=== PATIENT | female | born 2000 | race Caucasian/White ===

== ENCOUNTER 2021-12-17 14:47 | Emergency (ER) | payer OTHER ==
[2021-12-17] MEDS ORDERED: LIDOCAINE/EPINEPHR/TETRACAINE 5 ML BOTTLE TOPICAL ONE (15:30)
[2021-12-17] MEDS ORDERED: GELATIN SPONGE,ABSORB (SMALL) 1 EACH SPONGE TOPICAL STA (15:33)
[2021-12-17] MEDS ORDERED: MORPHINE SULFATE 2 MG/ML SYRINGE IM STA (15:35)
--- NOTE | 2021-12-17 15:52 | ED ---
Wound/Laceration HPI - General Chief Complaint: Wound/Laceration Stated Complaint: IHS-L hand finger lac Time Seen by Provider: 12/17/21 15:21 Source: patient, RN notes reviewed Mode of arrival: ambulatory Limitations: no limitations - History of Present Illness Initial Comments: Patient is a 21-year-old -Portuguese female presents the emergency room with complaints of laceration to her left thumb. She was cutting food for work when she accidentally sliced her thumb. The knife she was using was clean and a sharp non-serrated blade; she was cutting raw yan. She reports that her vaccinations including Tdap up-to-date. She has no significant past medical history and does not take any medications on a regular basis. - Related Data Previous Rx's Medication Instructions Recorded Sulfamethox-Tmp 800-160Mg [Bactrim 1 tab PO Q12HR 3 Days #6 tab 12/17/21 DS 800-160 mg] Allergies Allergy/AdvReac Type Severity Reaction Status Date / Time No Known Allergies Allergy Verified 12/17/21 14:53 Review of Systems ROS Statement: Those systems with pertinent positive or pertinent negative responses have been documented in the HPI. ROS Other: All systems not noted in ROS Statement are negative. Past Medical History Past Medical History: No Reported History History of Any Multi-Drug Resistant Organisms: None Reported Past Surgical History: No Surgical Hx Reported Past Psychological History: No Psychological Hx Reported Smoking Status: Vaper Past Alcohol Use History: None Reported Past Drug Use History: None Reported General Exam Limitations: no limitations General appearance: alert, other (in pain) Head exam: Present: atraumatic, normocephalic, normal inspection Eye exam: Present: normal appearance, PERRL, EOMI. Absent: scleral icterus, conjunctival injection, periorbital swelling ENT exam: Present: normal exam, mucous membranes moist Neck exam: Present: normal inspection Respiratory exam: Absent: respiratory distress, accessory muscle use Left Hand Wrist exam: Present: full ROM, laceration, other (clean lacertaion of dermal tip left thumb). Absent: swelling, nail avulsion Vascular: Absent: vascular compromise Neurological exam: Present: alert, oriented X3, CN II-XII intact Psychiatric exam: Present: anxious Skin exam: Present: other (laceration as above) Course Vital Signs 12/17/21 14:48 Temperature 98 F Pulse Rate 100 Respiratory 20 Rate Blood Pressure 151/82 O2 Sat by Pulse 99 Oximetry Medical Decision Making - Medical Decision Making Laceration with skin removal to left thumb tip and partial end of nail without blunt force trauma nail bed or phalange involvement. No indication for diagnostic imaging or laboratory studies. Will attempt to stop bleeding with LET if unsuccessful will use Gelfoam. Significant pain complaints from patient will give morphine IM and monitor response. Pain improved with morphine. Unable to slow bleeding with LET solution Gelfoam applied with successful stoppage of bleeding. Pressure dressing applied. Due to cutting raw meat will treat with a short course of Bactrim. Will refer to hand specialist for further evaluation and treatment of left thumb tip. Advised no work for the next 48 hours. Case discussed with Dr. Segal Disposition Clinical Impression: Laceration Disposition: HOME SELF-CARE Condition: Stable Instructions (If sedation given, give patient instructions): Laceration (ED) Additional Instructions: Please keep wound clean and dry. Avoid excessive bandage changes to prevent further bleeding. Please complete short course of antibiotics as a preventative for infection. Utilize ibuprofen or Tylenol [id number] as needed for pain. Please follow-up with your primary care provider and orthopedist regarding possible further intervention of your laceration to your left thumb. Please return to the Emergency Department if symptoms worsen or any other concerns. Prescriptions: Sulfamethox-Tmp 800-160Mg [Bactrim DS 800-160 mg] 1 tab PO Q12HR 3 Days #6 tab Is patient prescribed a controlled substance at d/c from ED?: No Referrals: Akosua Mane MD [Primary Care Provider] - 1-2 days Jessa Saleh DPM [REFERRING] - 1-2 days (Hand specialist) Time of Disposition: 16:49
[2021-12-17 17:15] VITALS: BP 139/96; PULSE 91; RESP 18; TEMP 98.8
== END 2021-12-17 17:15 | disposition home or self-care (01) ==
LOC: EC 14:47
DX: S61.012A Laceration without foreign body of left thumb without damage to nail, initial encounter (principal); F17.290 Nicotine dependence, other tobacco product, uncomplicated; W26.0XXA Contact with knife, initial encounter; Y93.G1 Activity, food preparation and clean up; Y92.000 Kitchen of unspecified non-institutional (private) residence as the place of occurrence of the external cause
CPT/HCPCS: 99282; J2270; 96372

== ENCOUNTER 2021-12-20 17:56 | Emergency (ER) | payer OTHER ==
[2021-12-20 18:11] VITALS: BP 115/78; PULSE 85; RESP 20; TEMP 98.6
--- NOTE | 2021-12-20 19:20 | ED ---
Recheck HPI - General Chief Complaint: Recheck/Abnormal Lab/Rx Stated Complaint: lt hand - thumb injury Time Seen by Provider: 12/20/21 19:05 Source: patient, RN notes reviewed Mode of arrival: ambulatory Limitations: no limitations - History of Present Illness Initial Comments: Condition presents to the emergency department complaining of inability to remove the bandage from her left thumb. Patient cut her thumb on Monday was seen here for skin avulsion. Gelfoam was applied. Bandage was applied. According to the patient and her mother the bandages stuck and they could not get it off. They present for evaluation. Is been no symptomology related to infectious process. Patient denying any significant pain. No fever, no chills, no shortness of breath or chest pain. No nausea or vomiting. No abdominal pain. No other skin irritation. No rashes or lesions. No erythema. MD Complaint: wound re-check - Related Data Previous Rx's Medication Instructions Recorded Sulfamethox-Tmp 800-160Mg [Bactrim 1 tab PO Q12HR 3 Days #6 tab 12/17/21 DS 800-160 mg] Allergies Allergy/AdvReac Type Severity Reaction Status Date / Time No Known Allergies Allergy Verified 12/20/21 18:10 Review of Systems ROS Statement: Those systems with pertinent positive or pertinent negative responses have been documented in the HPI. ROS Other: All systems not noted in ROS Statement are negative. Past Medical History Past Medical History: No Reported History History of Any Multi-Drug Resistant Organisms: None Reported Past Surgical History: No Surgical Hx Reported Past Psychological History: No Psychological Hx Reported Smoking Status: Vaper Past Alcohol Use History: None Reported Past Drug Use History: None Reported General Exam Limitations: no limitations General appearance: alert, in no apparent distress Head exam: Present: atraumatic, normocephalic, normal inspection Eye exam: Present: normal appearance, EOMI Neck exam: Present: normal inspection Respiratory exam: Present: normal lung sounds bilaterally. Absent: respiratory distress, wheezes, rales, rhonchi, stridor Cardiovascular Exam: Present: regular rate, normal rhythm, normal heart sounds. Absent: systolic murmur, diastolic murmur, rubs, gallop, clicks Extremities exam: Present: full ROM, normal capillary refill, other (Patient has a bandage to the distal aspect of her left thumb which is intact. There is no evidence of infectious process. No erythema. Full range of motion. No joint involvement.). Absent: tenderness Course Vital Signs 12/20/21 18:08 Temperature 98.6 F Pulse Rate 85 Respiratory 20 Rate Blood Pressure 115/78 O2 Sat by Pulse 99 Oximetry Procedures - Procedures Initial comment: Dressing was removed without difficulty. Wound was cleansed thoroughly. Band- Aid applied. Patient educated on wound care. Gelfoam was left in place. Medical Decision Making - Medical Decision Making Patient counseled on wound care. Counseled on signs and symptoms of infection. Counseled return or follow parameters. All questions answered. Patient was told to return to the ER for any signs or symptoms worsen. Told to return immediately if any other problems arise. All questions answered. Treatment plan discussed. Patient in agreement Every effort has been made to ensure accuracy of this dictation. However, due to the limitations of electronic medical records and dictation devices, errors in charting still occur. Publication Designer Dr. Negron Disposition Clinical Impression: Encounter for wound re-check Disposition: HOME SELF-CARE Condition: Good Instructions (If sedation given, give patient instructions): Acute Wound Care (ED) Additional Instructions: Wash the wound daily with warm soap and water. Apply a Band-Aid. Wash daily. Leave the Gelfoam on until it falls off on its own. Follow-up with your regular physician as directed. Return to the ER immediately if any symptoms worsen, new symptoms arise, or any other problems develop. Is patient prescribed a controlled substance at d/c from ED?: No Referrals: Akosua Mane MD [Primary Care Provider] - 1-2 days Time of Disposition: 19:35
== END 2021-12-20 19:46 | disposition home or self-care (01) ==
LOC: EC 17:56
DX: S61.002D Unspecified open wound of left thumb without damage to nail, subsequent encounter (principal); F17.209 Nicotine dependence, unspecified, with unspecified nicotine-induced disorders; W26.8XXD Contact with other sharp object(s), not elsewhere classified, subsequent encounter
CPT/HCPCS: 99281

== ENCOUNTER 2022-04-11 00:32 | Emergency (ER) | payer BC ==
[2022-04-11 00:36] VITALS: BP 162/107; PULSE 92; RESP 18; TEMP 98.7
[2022-04-11] MEDS ORDERED: ACETAMINOPHEN TAB 325 MG TAB PO STA (02:34)
[2022-04-11] MEDS ORDERED: IBUPROFEN 800 MG TAB PO STA (02:34)
--- NOTE | 2022-04-11 02:35 | ED ---
Abdominal Pain HPI - General Chief Complaint: Abdominal Pain Stated Complaint: Cramping, Abdominal Pain Source: family, RN notes reviewed, old records reviewed Mode of arrival: ambulatory Limitations: no limitations - History of Present Illness Initial Comments: This is a 21-year-old female to the emergency department for evaluation presents today for evaluation regards to crampy abdominal pain suprapubic abdominal pain positive nausea no vomiting denies chance of no vaginal bleeding symptoms began during intercourse tonight are mildly improving MD Complaint: abdominal pain -: hour(s) Location: diffuse, suprapubic Radiation: suprapubic Migration to: no migration, suprapubic Severity: moderate Severity scale (1-10): 7 Quality: sharp Consistency: intermittent Improves With: nothing Worsens With: nothing Associated Symptoms: nausea Treatments Prior to Arrival: other (0) - Related Data Previous Rx's Medication Instructions Recorded Sulfamethox-Tmp 800-160Mg [Bactrim 1 tab PO Q12HR 3 Days #6 tab 12/17/21 DS 800-160 mg] Allergies Allergy/AdvReac Type Severity Reaction Status Date / Time No Known Allergies Allergy Verified 04/11/22 00:35 Review of Systems ROS Statement: Those systems with pertinent positive or pertinent negative responses have been documented in the HPI. ROS Other: All systems not noted in ROS Statement are negative. Past Medical History Past Medical History: No Reported History History of Any Multi-Drug Resistant Organisms: None Reported Past Surgical History: No Surgical Hx Reported Past Psychological History: No Psychological Hx Reported Smoking Status: Vaper Past Alcohol Use History: None Reported Past Drug Use History: None Reported General Exam Limitations: no limitations General appearance: alert, in no apparent distress Head exam: Present: atraumatic, normocephalic, normal inspection Eye exam: Present: normal appearance, PERRL, EOMI. Absent: scleral icterus, conjunctival injection, periorbital swelling ENT exam: Present: normal exam, mucous membranes moist Neck exam: Present: normal inspection. Absent: tenderness, meningismus, lymphadenopathy Respiratory exam: Present: normal lung sounds bilaterally. Absent: respiratory distress, wheezes, rales, rhonchi, stridor Cardiovascular Exam: Present: regular rate, normal rhythm, normal heart sounds. Absent: systolic murmur, diastolic murmur, rubs, gallop, clicks GI/Abdominal exam: Present: soft, normal bowel sounds. Absent: distended, tenderness, guarding, rebound, rigid Extremities exam: Present: normal inspection, full ROM, normal capillary refill. Absent: tenderness, pedal edema, joint swelling, calf tenderness Back exam: Present: normal inspection Neurological exam: Present: alert, oriented X3, CN II-XII intact Psychiatric exam: Present: normal affect, normal mood Skin exam: Present: warm, dry, intact, normal color. Absent: rash Course Vital Signs 04/11/22 00:34 Temperature 98.7 F Pulse Rate 92 Respiratory 18 Rate Blood Pressure 162/107 O2 Sat by Pulse 100 Oximetry - Reevaluation(s) Reevaluation #1: 04/11/22 Medical record is reviewed Patient symptoms are improved here in the ER Patient informed results and questions are answered Medical Decision Making - Medical Decision Making 21 female to the emergency department for evaluations, mild dyspareunia with pelvic pain. No acute cause found no real tenderness on exam. Patient can be discharged home normal UA - Lab Data Lab Results 04/11/22 04/11/22 Range/Units 02:43 02:43 Urine Color Yellow Urine Appearance Clear (Clear) Urine pH 6.0 (5.0-8.0) Ur Specific [place] 1.019 (1.001-1.035) Urine Protein 2+ H (Negative) Urine Glucose (UA) Negative (Negative) Urine Ketones Negative (Negative) Urine Blood Small H (Negative) Urine Nitrite Negative (Negative) Urine Bilirubin Negative (Negative) Urine Urobilinogen <2.0 (<2.0) mg/dL Ur Leukocyte Esterase Negative (Negative) Urine RBC <1 (0-5) /hpf Urine WBC 1 (0-5) /hpf Ur Squamous Epith Cells 2 (0-4) /hpf Urine Mucus Occasional H (None) /hpf Urine HCG, Qual Not Detected (Not Detectd) Disposition Clinical Impression: Abdominal pain, Pelvic pain Disposition: HOME SELF-CARE Instructions (If sedation given, give patient instructions): Pelvic Pain in Women (ED) Is patient prescribed a controlled substance at d/c from ED?: No Referrals: Akosua Mane MD [Primary Care Provider] - 1-2 days Time of Disposition: 03:15
[2022-04-11 02:58] LABS: Appearance,Urine Clear (Clear); Bilirubin,Urine Negative (Negative); Blood,Urine Small (Negative); Color,Urine Yellow; Glucose,Urine (UA) Negative (Negative); Ketones,Urine Negative (Negative); Leukocyte Esterase,Urine Negative (Negative); Mucus,Urine Occasional /hpf; Nitrite,Urine Negative (Negative); Protein,Urine 2+ (Negative); RBC,Urine <1 /hpf (0-5); Specific Gravity,Urine 1.019 (1.001-1.035); Squamous Epithelial Cell,Urine 2 /hpf (0-4); Urobilinogen,Urine <2.0 mg/dL (<2.0); WBC,Urine 1 /hpf (0-5)
== END 2022-04-11 03:27 | disposition home or self-care (01) ==
LOC: EC 00:32
DX: R10.2 Pelvic and perineal pain (principal); F17.290 Nicotine dependence, other tobacco product, uncomplicated
CPT/HCPCS: 81001; 81025; 99284

== ENCOUNTER 2022-09-02 11:14 | Day surgery (SDC) | payer BC ==
[~2022-09-02 11:14] MED LIST: DEXAMETHASONE SOD PHOSPHATE 4 MG/ML 1 ML VIAL IV ONE; LACTATED RINGERS 1,000 ML IV SCH; MIDAZOLAM 2 MG/2 ML VIAL IV PRN; ONDANSETRON 4 MG/2 ML VIAL IVP ONE; SCOPOLAMINE 1 MG/72 HR PATCH TRANSDERM ONE
[2022-09-02] MEDS ORDERED: LIDOCAINE 1% (10MG/ML) FOR IV START INTRADERMA ONE (11:55)
[2022-09-02] MEDS ORDERED: MIDAZOLAM 2 MG/2 ML VIAL IVP ONE (12:23)
[2022-09-02] MEDS ORDERED: fentaNYL (PF) 50 MCG/1 ML VIAL IVP ONE ×2 (12:24)
[2022-09-02] MEDS ORDERED: SUCCINYLCHOLINE CHLORIDE 200 MG/10 ML VIAL IV ONE (13:56)
[2022-09-02] MEDS ORDERED: SODIUM CHLORIDE 0.9% (PF) 10 ML VIAL ONE (13:56)
[2022-09-02] MEDS ORDERED: HYDROmorphone (PF) 1 MG/ML ONE (13:56)
[2022-09-02] MEDS ORDERED: MIDAZOLAM 2 MG/2 ML VIAL ONE (13:56)
[2022-09-02] MEDS ORDERED: LIDOCAINE 2% INJ 20 MG/ML (2 ML VIAL) ONE (13:56)
[2022-09-02] MEDS ORDERED: fentaNYL (PF) 50 MCG/ML 2 ML AMP ONE (13:56)
[2022-09-02] MEDS ORDERED: ROPIVACAINE 5 MG/ML 30 ML VIAL ONE (13:56)
[2022-09-02] MEDS ORDERED: PROPOFOL 10 MG/ML 20 ML VIAL IV ONE (13:56)
--- NOTE | 2022-09-02 14:25 | XR ---
EXAMINATION TYPE: XR ankle limited RT, FL guidance operating room DATE OF EXAM: 09/02/2022 CLINICAL HISTORY: Right ankle fracture. TECHNIQUE: Fluoroscopy. Intraoperative limited views right ankle. COMPARISON: None. FINDINGS: Fluoroscopic guidance was provided during open reduction and internal fixation procedure p erformed by Dr. Agrawal. A total of 64 seconds of fluoroscopic time was utilized during the procedu re and 5 spot images was acquired. Total dose area product (DAP) in uGy*m?, mGy*cm? (or similar: 0.8 057. Intraoperative images acquired show placement of lateral fixating plate in the lateral malleolus. Ali gnment appears satisfactory on intraoperative images provided. IMPRESSION: As Above.
--- NOTE | 2022-09-02 14:30 | P.OP ---
Date of Procedure: 09/02/22 Preoperative Diagnosis: 1. Right [place] ankle injury (proximal fibula fracture and distal syndesmotic disruption) Postoperative Diagnosis: Same Procedure(s) Performed: 1. Open reduction internal fixation right ankle syndesmosis 2. Nonoperative management of right proximal fibula fracture 3. Application of joint with the position, right ankle 4. Manual application of joint stress radiography by physician, right ankle Anesthesia: KENDRA, regional Surgeon: Damaso Agrawal Milk Tanker Driver #1: Christiano Pan Estimated Blood Loss (ml): 50 IV fluids (ml): 1,000 Pathology: none sent Condition: stable Disposition: PACU Indications for Procedure: The patient is very pleasant previously healthy 21-year-old female who sustained an isolated injury to her right ankle. She was initially seen at an outside ER where x-rays were taken. She presented to my office earlier this week. Her x- rays showed a proximal fibula fracture with widening of the medial clear space and incisura. We discussed her unstable ankle injury and that it would require surgery. I long discussion with the patient and her mom on the treatment and potential risks. We discussed the potential risks and complications of ankle fracture surgery at length. Risks discussed included but are not limited to risks from anesthesia, superficial infection, deep infection, nonunion, malunion, malreduction of the ankle mortise or syndesmosis, damage to local blood vessels or nerves particularly branches of the superficial peroneal nerve, saphenous nerve, and or sural nerve, hardware failure, loss of reduction of the ankle mortise or syndesmosis due to hardware failure, symptomatic hardware, delayed wound healing, wound necrosis, posttraumatic ankle arthritis, stiffness, instability, intra-articular pathology requiring further treatment, need for further surgery, an inability to regain preinjury level of function, dissatisfaction with surgical outcome, DVT, PE, pressure sore, splint complications, and possibly loss of life or limb. The patient understands that while these are the most common complications there are other less common complications possible. They provided their verbal and written consent to go forward with ankle open reduction and internal fixation. All of their questions regarding the procedure and potential complications were answered. Description of Procedure: The patient identified and prepped holding and the correct right ankle was marked with my initials. I reviewed the consent form with the patient and all of her questions were answered. A block was given by anesthesia. The patient was then brought back to the operating room. She is just not [id number] general anesthetic, preoperative antibiotics, and TXA were given. A tourniquet was applied the proximal aspect of the right leg. The left leg was secured to the table with foam and tape. A bump was placed under the right buttock internally rotate the leg. A ramp was placed facilitate imaging. Nonsterile drapes were applied. A presurgical scrub was performed a chlorhexidine scrub brush. The right leg was then prepped and draped in the standard sterile fashion. Prior to starting surgery timeout was performed identifying the correct patient, operative extremity, and procedure. The patient's leg was then elevated, exsanguinated with an Esmarch bandage, and the tourniquet was inflated to 250 mmHg. I began by making an over the distal fibula long enough to place a 4 hole one third tubular plate. Dissection was carried down to the fibula. There was obvious disruption of the distal syndesmosis as I was easily able to pass a Phoenix elevator between the distal tibia and fibula syndesmosis. A 4 hole one third tubular plate was placed at the level of the syndesmosis and nonlocking 3.5 mm screws were placed in the first and fourth hole of the plate. Using both visualization, manual palpation, and fluoroscopy the fibula was gently reduced into the incisura. The reduction was held with a large [id number] reduction clamp. I then placed a tight rope device from lateral to medial across the syndesmosis. The Endobutton was placed directly against the tibia medially and the tight rope device was tightened nicely reducing the syndesmosis. Fluoroscopy was then used to verify reduction of the syndesmosis and medial clear space. A syndesmotic screw was then placed in the second hole of the plate to hold the repair. Clinically the syndesmosis was reduced as I was able to visualize the reduction and was unable to pass a Phoenix elevator through the syndesmosis. Final fluoroscopic images were taken including a mortise and lateral view as well as a manual external rotation stress x-ray. There was no widening of the medial clear space or incisura. I interpreted this as a stable ankle syndesmosis. Both wounds were then thoroughly irrigated and closed in layers. Sterile dressing was applied followed by a well-padded bulky Negron splint. The patient was awoken from her anesthetic, transferred from the OR table to the [facility], and brought to recovery having tolerated the procedure well. Christiano Pan PA-C was required the skilled commercial lines account assistant for patient positioning, exposure, reduction, placement of hardware, closure of wound, and application of splint. Plan: The patient is going to discharge home as an outpatient. She is to make strict nonweightbearing on her right ankle. I long discussion with the patient's parents on risks for DVT. As the patient is adopted they're not aware of any family history of DVT. She is not on control and has no other risk factors so she'll be treated with aspirin 81 mg twice a day. She was given pain medications and a stool softener. The patient will follow-up in the office in 10-14 days for splint removal nonweightbearing 3 views of the right ankle and likely suture removal.
[2022-09-02 14:33] VITALS: RESP 16; TEMP 97.4
[2022-09-02] MEDS: HYDROmorphone 0.5 MG/0.5 ML SYRINGE IVP PRN ×2 (14:40→14:50)
--- NOTE | 2022-09-02 15:28 | P.ANPRN ---
Procedure Note - Anesthesia - Nerve Block Performed Right Adductor Canal Time Out Performed: Yes (:) Date of Procedure: 09/02/22 Procedure Start Time: Procedure Stop Time: Location of Patient: PreOp Indication: Acute Post-Operative Pain, Requested by Surgeon (Dr Agrawal) Sedation Type: Sedate with meaningful contact maintained Preparation: Sterile Prep Position: Supine Catheter: None Needle Types: Pajunk Needle Gauge: 21 Ultrasound used to visualize needle placement: Yes Ultrasound used to observe medication spread: Yes Injectate: 0.5% Ropivacaine (see comment for volume) (20cc) Blood Aspirated: No Pain Paresthesia on Injection Noted: No Resistance on Injection: Normal Image Stored and Saved: Yes Events: Uneventful and Well Tolerated
--- NOTE | 2022-09-02 15:29 | P.ANPRN ---
Procedure Note - Anesthesia - Nerve Block Performed Right Popliteal Time Out Performed: Yes Date of Procedure: 09/02/22 Procedure Start Time: 12: Procedure Stop Time: 12:34 Location of Patient: PreOp Indication: Acute Post-Operative Pain, Requested by Surgeon (Dr Agrawal) Sedation Type: Sedate with meaningful contact maintained Preparation: Sterile Prep Position: Left Lateral Catheter: None Needle Types: Pajunk Needle Gauge: 21 Ultrasound used to visualize needle placement: Yes Ultrasound used to observe medication spread: Yes Injectate: 0.5% Ropivacaine (see comment for volume) (15cc +5cc PF Normal saline) Blood Aspirated: No Pain Paresthesia on Injection Noted: No Resistance on Injection: Normal Image Stored and Saved: Yes Events: Uneventful and Well Tolerated
[2022-09-02 16:32] VITALS: BP 153/97; PULSE 60
== END 2022-09-02 16:50 | disposition home or self-care (01) ==
LOC: OR 11:14
PROVIDERS: ATTEND Orthopaedic Surgery
DX: S82.831A Other fracture of upper and lower end of right fibula, initial encounter for closed fracture (principal); S82.861A Displaced Maisonneuve's fracture of right leg, initial encounter for closed fracture; W01.0XXA Fall on same level from slipping, tripping and stumbling without subsequent striking against object, initial encounter; G89.18 Other acute postprocedural pain; F12.90 Cannabis use, unspecified, uncomplicated; Z87.891 Personal history of nicotine dependence; Z79.899 Other long term (current) drug therapy
CPT/HCPCS: 27829; 64447; 64445; 81025; 73600; J2250; J0330; J1100; J0690; J2405; J3010 ×2; J1170 ×2; J2795; J2704; J2001

== ENCOUNTER → 2023-11-02 | Outpatient (CLI) | payer BC, OTHER ==
--- NOTE | 2023-11-03 09:10 | US ---
EXAMINATION TYPE: US OB anatomy transabd DATE OF EXAM: 11/02/2023 COMPARISON: NONE CLINICAL INDICATION: Female, 23 years old with history of Z34.90 SUPRVSN OF NORMAL ,; G1. TECHNIQUE: Transabdominal (TA) EXAM MEASUREMENTS: GESTATIONAL AGE / DATING Physician Established: ( weeks/ day) EDC: 03/27/2024 Dates by LMP: Unknown per patient Dates by First Scan: This is first scan at this facility. Dates by Current Scan for: () EDC: 03/27/2024 SURVEY IUP: Single PLACENTA: Fundal PREVIA: No previa seen DARION: 13.6 cm Normal CERVICAL LENGTH (transabdominal: norm > 3.0cm): 3.3 cm BIOMETRY PRESENTATION: Variable BPD: 4.20 cm 18 weeks / 6 days HC: 15.8 cm 18 weeks / 5 days AC: 13.99 cm 19 weeks / 3 days FL: 3.01 cm 19 weeks / 3 days ESTIMATED WEIGHT IN GRAMS: 282 grams ESTIMATED WEIGHT IN LBS/OZ: 0 lbs. 10 oz. WEIGHT PERCENTAGE BASED ON ESTABLISHED DATE: 52 % HC/AC: 1.13 Normal FL/AC: 22% HEART RATE: 142 bpm RHYTHM: Normal ANATOMY SEEN (within normal limits): * Lateral Vent (< 1 cm) 0.61 cm * Cisterna Magna (< 1.1 cm) 0.56 cm * Nuchal Fold (< 0.6 cm) 0.34 cm * Cerebellum (varies with age) 1.89 cm Choroid Plexus (bilateral) Midline Falx Four Chamber Heart Outflow tracts: LVOT Stomach Situs Diaphragm Kidneys (bilateral) Bladder Cord Insert Three Vessel Cord Longitudinal Spine Transverse Spine Arms (bilateral) Legs (bilateral) ANATOMY NOT SEEN: RVOT Nose / Lips Cavus Septi Pellucidi Patient given call center number to make OB call back appt for structures not seen. IMPRESSION: Single live intrauterine gestational ultrasound age 19 weeks 1 day, patient to return for anatomy not seen. Consider follow-up dedicated imaging Center.
== END | disposition home or self-care (01) ==
LOC: RADUSWWP 15:47
PROVIDERS: ATTEND Obstetrics & Gynecology
DX: Z34.90 Encounter for supervision of normal pregnancy, unspecified, unspecified trimester (principal)
CPT/HCPCS: 76811

== ENCOUNTER 2023-11-11 12:35 | Outpatient (CLI) | payer BC, OTHER ==
[2023-11-11 13:26] VITALS: BP 140/66; PULSE 87; RESP 16; TEMP 97.3
--- NOTE | 2023-12-10 10:36 | P.MSEPDOC ---
Presenting Problems - Arrival Data Date of Arrival on Unit: 11/11/23 Time of Arrival on Unit: 12:35 Mode of Transport: Ambulatory - Complaint OB-Reason for Admission/Chief Complaint: Elevated Blood Pressure Comment: LEWIS pt presents to triage very anxious after an appointment with Dr. Sales who told her her blood pressure was "high" and had "protein in her urine." Pt wants to get checked out to make sure everything is ok. Medical History - Information : 1 Para: 0 Term: 0 : 0 Abortions: Spontaneous or Elective: 0 Number of Living Children: 0 - Gestational Age Gestational Age by SEAMUS (wks/days): 20 Weeks and 3 Days Review of Systems - Review of Systems Constitutional: No problems Breast: No problems ENT: No problems Cardiovascular: No problems Respiratory: No problems Gastrointestinal: No problems Genitourinary: No problems Musculoskeletal: No problems Neurological: No problems Skin: No problems Vital Signs - Temperature Temperature: 97.3 F Temperature Source: Temporal Artery Scan - Pulse Pulse Oximetery Pulse Rate: 87 Pulse Assessment Method: Pulse Oximetry - Respirations Respiratory Rate: 16 Oxygen Delivery Method: Room Air O2 Sat by Pulse Oximetry: 97 - Blood Pressure Right Arm Blood Pressure: 140/66 Blood Pressure Mean: 90 Blood Pressure Source: Automatic Cuff Physician Notification - Physician Notified Physician Notified Date: 11/11/23 Physician Notified Time: 13:08 Physician: Ashvin Brothers Order Received: Yes - Notification Comment Comment: RN spoke with Dr. Brothers regarding LEWIS pt who presents to get a BP check after being seen by Dr. Sales/clinic on and was told she had high blood pressure and protein in her urine and has been anxious ever since. Reported vitals WNL, including all three BPs and FHT dopplered. Orders received to discharge pt home. Maternal Triage Index - Maternal Triage Index Presenting for scheduled procedure w/no complaint: No - Stat/Priority 1 Stat Priority 1: No - Urgent/Priority 2 Urgent Priority 2: No - Prompt/Priority 3 Prompt Priority 3: No - Non-Urgent/Priority 4 Non-Urgent Priority 4: Yes Criteria Met for Priority 4: Non-urgent symptoms - BP check/anxiety Disposition - Disposition OB Disposition: Discharge to home, Written follow up instructions reviewed Discharge Date: 11/11/23 Discharge Time: 13:15 I agree with the RN Medical Screening Exam: Yes Physician's MSE Comment: I have neither seen nor examined the patient. Case reviewed; plan agreed upon as documented in EMR&OBIX.: Yes Diagnosis: RELATED CONDITIONS, UNSPECIFIED, SECOND TRIMESTER
== END 2023-11-11 13:15 | disposition home or self-care (01) ==
LOC: FBPOP 12:35
PROVIDERS: ATTEND Obstetrics & Gynecology
DX: O26.892 Other specified pregnancy related conditions, second trimester (principal); R03.0 Elevated blood-pressure reading, without diagnosis of hypertension; Z3A.20 20 weeks gestation of pregnancy
CPT/HCPCS: 99213

== ENCOUNTER → 2023-11-13 | Outpatient (CLI) | payer BC, OTHER ==
--- NOTE | 2023-11-14 07:25 | US ---
EXAMINATION TYPE: US OB Call Back DATE OF EXAM: 11/13/2023 COMPARISON: 11/02/2023 CLINICAL INDICATION: Female, 23 years old with history of Z34.90 SUPERVSN OF NORMAL ; Missed anatomy GESTATIONAL AGE / DATING Dates by Initial Survey Scan: (20 weeks/5 days) EDC: 03/27/2024 HEART RATE: 142 bpm RHYTHM: Normal ANATOMY SEEN (second anatomic survey look): Cavus Septi Pellucidi: WNL Outflow tracts:? RVOT; WNL Nose / Lips: WNL ANATOMY STILL NOT SEEN (requiring an additional callback appt): All anatomy not visualized on initial exam was seen today and appears to be within normal limits at this time IMPRESSION: 1. Completion of survey. No anomalies noted. 2. Single intrauterine gestation estimated at 20 weeks 5 days gestation based on previous ultrasound. Cardiac activity measures 2.
== END | disposition home or self-care (01) ==
LOC: RADUSWWP 14:11
PROVIDERS: ATTEND Obstetrics & Gynecology
DX: Z34.92 Encounter for supervision of normal pregnancy, unspecified, second trimester (principal); Z36.89 Encounter for other specified antenatal screening; Z3A.20 20 weeks gestation of pregnancy

== ENCOUNTER → 2023-11-22 | Outpatient (CLI) | payer BC, OTHER ==
--- NOTE | 2023-11-22 12:48 | US ---
EXAMINATION TYPE: US OB anatomy transabd DATE OF EXAM: 11/22/2023 COMPARISON: US x 2 CLINICAL INDICATION: Female, 23 years old with history of Z34.90 ENCNTR FOR SUPRVSN OF NORMAL PREGNAN CY, UNS; Pt states Dr. rodriguez nose/lips not well evaluated on prior exam TECHNIQUE: Transabdominal (TA) EXAM MEASUREMENTS: GESTATIONAL AGE / DATING Physician Established: (22 weeks/0 days) EDC: 03/27/2024 Dates by LMP: Unknown Dates by First Scan: (22 weeks/0 days) EDC: 03/27/2024 Dates by Current Scan for: (21 weeks/2 days) EDC: 04/01/2024 SURVEY IUP: Single PLACENTA: Posterior PREVIA: No previa DARION: 14.0 cm Normal CERVICAL LENGTH (transabdominal: norm > 3.0cm): 3.4 cm BIOMETRY PRESENTATION: Breech BPD: 5.2 cm 21 weeks / 5 days HC: 19.4 cm 21 weeks / 4 days AC: 16.8 cm 21 weeks / 6 days FL: 3.6 cm 21 weeks / 2 days ESTIMATED WEIGHT IN GRAMS: 436 grams ESTIMATED WEIGHT IN LBS/OZ: 0 lbs. 15 oz. WEIGHT PERCENTAGE BASED ON ESTABLISHED DATE: 24.8 % HC/AC: 1.15 Normal FL/AC: 21 Normal HEART RATE: 137 bpm RHYTHM: Normal ANATOMY SEEN (within normal limits): * Lateral Vent (< 1 cm) 0.6 cm * Cisterna Magna (< 1.1 cm) 0.6 cm * Cerebellum (varies with age) 2.3 cm Choroid Plexus (bilateral) Midline Falx Cavus Septi Pellucidi Four Chamber Heart Outflow tracts: RVOT Stomach Situs Nose / Lips Diaphragm Kidneys (bilateral) Bladder Cord Insert Three Vessel Cord Longitudinal Spine Transverse Spine Arms (bilateral) Legs (bilateral) ANATOMY NOT SEEN: * Nuchal Fold (< 0.6 cm)- visualized on recent prior anatomy scan LVOT- visualized on recent prior anatomy scan Single, viable IUP- anatomy visualized on today's exam appeared wnl IMPRESSION: As above
== END | disposition home or self-care (01) ==
LOC: RADUSWWP 09:43
PROVIDERS: ATTEND Obstetrics & Gynecology
DX: Z34.92 Encounter for supervision of normal pregnancy, unspecified, second trimester (principal); Z3A.21 21 weeks gestation of pregnancy
CPT/HCPCS: 76811

== ENCOUNTER 2023-11-27 12:01 | Outpatient (CLI) | payer BC, OTHER ==
--- NOTE | 2023-11-27 13:26 | US ---
EXAMINATION TYPE: US OB >= 14 wk fetus DATE OF EXAM: 11/27/2023 COMPARISON: 11/22/23 CLINICAL INDICATION: Female, 23 years old with history of vaginal bleeding and pain; vag bleeding TECHNIQUE: Transabdominal (TA) GESTATIONAL AGE / DATING Physician Established: (22 weeks/5 days) EDC: 03/27/24 Dates by LMP: (22 weeks/5 days) EDC: 03/27/24 Dates by First Scan: (22 weeks/5 days) EDC: 03/27/24 Dates by Current Scan: (22 weeks/5 days) EDC: 03/27/24 Beta HCG (if available): Not available at this time SURVEY IUP: Single PLACENTA: Posterior PREVIA: No Previa DARION: 15 cm Normal CERVICAL LENGTH (transabdominal: norm > 3.0cm): 3.9 cm BIOMETRY PRESENTATION: Vertex LIE: Longitudinal BPD: 5.5 cm 22 weeks / 5 days HC: 20.5 cm 22 weeks / 5 days AC: 17.8 cm 22 weeks / 5 days FL: 3.9 cm 22 weeks / 5 days ESTIMATED WEIGHT IN GRAMS: 524 grams ESTIMATED WEIGHT IN LBS/OZ: 1 lbs. 2 oz. WEIGHT PERCENTAGE BASED ON ESTABLISHED DATES: 40% HC/AC: 1.15 Normal FL/AC: 22 Normal HEART RATE: 150 bpm RHYTHM: Normal exam limited by body habitus, age, shadowing from head IMPRESSION: Single viable intrauterine is examined in limitation as noted.
[2023-11-27 13:30] LABS: Appearance,Urine Cloudy (Clear); Bacteria,Urine Rare /hpf; Bilirubin,Urine Negative (Negative); Blood,Urine Moderate (Negative); Color,Urine Light Yellow; Glucose,Urine (UA) Negative (Negative); Ketones,Urine Negative (Negative); Leukocyte Esterase,Urine Large (Negative); Mucus,Urine Rare /hpf; Nitrite,Urine Negative (Negative); PH, Urine 7.5 (5.0-8.0); Protein,Urine 2+ (Negative); RBC,Urine 1 /hpf (0-5); Specific Gravity,Urine 1.016 (1.001-1.035); Squamous Epithelial Cell,Urine 14 /hpf (0-4); Urobilinogen,Urine <2.0 mg/dL (<2.0); WBC,Urine 16 /hpf (0-5)
[2023-11-27] MEDS: TERBUTALINE 1 MG/ML VIAL SQ STA (14:20)
[2023-11-27] MEDS: LACTATED RINGERS 1,000 ML IV ONE (14:20)
[2023-11-27] MEDS: ACETAMINOPHEN IV (For NPO) 1,000 MG in EMPTY BAG 1 BAG IVPB STA (14:59)
[2023-11-27] MEDS: NIFEdipine 10 MG CAP PO STA (15:56)
[2023-11-27] MEDS: KETOROLAC 15 MG/ML 1 ML VIAL IVP STA (17:16)
[2023-11-27 17:25] LABS: Appearance,Urine Clear (Clear); Bilirubin,Urine Negative (Negative); Blood,Urine Trace (Negative); Color,Urine Colorless; Glucose,Urine (UA) Negative (Negative); Ketones,Urine Trace (Negative); Leukocyte Esterase,Urine Negative (Negative); Mucus,Urine Rare /hpf; Nitrite,Urine Negative (Negative); PH, Urine 6.5 (5.0-8.0); Protein,Urine Negative (Negative); Specific Gravity,Urine 1.004 (1.001-1.035); Urobilinogen,Urine <2.0 mg/dL (<2.0); WBC,Urine <1 /hpf (0-5)
[2023-11-27 20:44] VITALS: BP 128/60; PULSE 92; RESP 17
--- NOTE | 2024-01-30 20:36 | P.MSEPDOC ---
Presenting Problems - Arrival Data Date of Arrival on Unit: 11/27/23 Time of Arrival on Unit: 12:01 Mode of Transport: Wheelchair - Complaint OB-Reason for Admission/Chief Complaint: Vaginal Bleeding, Pain Comment: Pt presented to triage with abd pain and vaginal bleeding, pt crying and curled up in position, Medical History - Information : 1 Para: 0 Term: 0 : 0 Abortions: Spontaneous or Elective: 0 Number of Living Children: 0 - Gestational Age Gestational Age by SEAMUS (wks/days): 22 Weeks and 5 Days Review of Systems - Review of Systems Constitutional: No problems Breast: No problems ENT: No problems Cardiovascular: No problems Respiratory: No problems Gastrointestinal: No problems Genitourinary: No problems Musculoskeletal: No problems Neurological: No problems Skin: No problems Vital Signs - Pulse Right Brachial Pulse Rate: 92 Pulse Assessment Method: Automatic Cuff - Respirations Respiratory Rate: 17 Oxygen Delivery Method: Room Air - Blood Pressure Right Arm Blood Pressure: 128/60 Blood Pressure Mean: 82 Blood Pressure Source: Automatic Cuff Medical Screen Scoring - Cervical Exam Dilation (cm): 0 Effacement (%): 50 - Uterine Contractions Intensity: Mild Resting: Soft to palpation - Assessment - Baby A Baseline FHR: 145 Heart Rate - NICHD Category: Category I (Normal) Physician Notification - Physician Notified Physician Notified Date: 11/27/23 Physician Notified Time: 12:15 Physician: Stella Sen New Order Received: Yes - Notification Comment Comment: ultrasound done, ua x 2, one clean catch, one straight catheter, cultur es started, ivf x1 liter, ofirmev and tordol given iv, terb sq x1 procarida 10 mg po given, type and screen drawn, finally pain down after tordol was given, pt dc'd home and given instructions to be on pelvic rest and follow up with Dr. Sales tomorrow. Maternal Triage Index - Maternal Triage Index Presenting for scheduled procedure w/no complaint: No - Stat/Priority 1 Stat Priority 1: No - Urgent/Priority 2 Urgent Priority 2: Yes Provider Notified: Stella Sen Provider Notified Time: 12:15 Criteria Met for Priority 2: Pt presented to triage with abd pain and vaginal bleeding, pt crying and curled up in position, Disposition - Disposition OB Disposition: Triage, Discharge to home, Written follow up instructions reviewed Discharge Date: 11/27/23 Discharge Time: 18:46 I agree with the RN Medical Screening Exam: Yes Physician's MSE Comment: I have neither seen nor examined the patient Case reviewed; plan agreed upon as documented in EMR&OBIX.: Yes Diagnosis: SPOTTING COMPLICATING , SECOND TRIMESTER
== END 2023-11-27 18:46 | disposition home or self-care (01) ==
LOC: FBPOP 12:01
PROVIDERS: ATTEND Obstetrics & Gynecology
DX: O26.852 Spotting complicating pregnancy, second trimester (principal); O46.92 Antepartum hemorrhage, unspecified, second trimester; O00.01 Abdominal pregnancy with intrauterine pregnancy; Z3A.22 22 weeks gestation of pregnancy
CPT/HCPCS: 36415; 76805; 81001; 86850; 86900; 86901; 87086; 96361; 96365; 96375; 99215

== ENCOUNTER 2024-01-27 22:45 | Outpatient (CLI) | payer BC, OTHER ==
[2024-01-28 00:17] LABS: Appearance,Urine Cloudy (Clear); Bacteria,Urine Occasional /hpf; Bilirubin,Urine Negative (Negative); Blood,Urine Negative (Negative); Budding Yeast,Urine Rare /hpf; Calcium Oxalate Crystals,Urine Moderate /hpf; Color,Urine Light Yellow; Glucose,Urine (UA) Negative (Negative); Ketones,Urine Negative (Negative); Leukocyte Esterase,Urine Large (Negative); Mucus,Urine Few /hpf; Nitrite,Urine Negative (Negative); PH, Urine 6.5 (5.0-8.0); Protein,Urine 2+ (Negative); RBC,Urine 8 /hpf (0-5); Specific Gravity,Urine 1.022 (1.001-1.035); Squamous Epithelial Cell,Urine 9 /hpf (0-4); Urobilinogen,Urine <2.0 mg/dL (<2.0); WBC,Urine 175 /hpf (0-5)
[2024-01-28 01:35] VITALS: BP 135/65; PULSE 94; RESP 18; TEMP 98.3
--- NOTE | 2024-03-03 02:10 | P.MSEPDOC ---
Presenting Problems - Arrival Data Date of Arrival on Unit: 01/27/24 Time of Arrival on Unit: 22:45 Mode of Transport: Wheelchair - Complaint OB-Reason for Admission/Chief Complaint: Decreased Movement, Pain Comment: Pt presents to triage with c/o decreased movement for past hour, states she has not felt baby kick at all in an hour. Pt states she also developed a sharp intermittent left lower back pain that radiates to lower abdominal pain that she rates 6/10 that started around the same time. Medical History - Information : 1 Para: 0 Term: 0 : 0 Abortions: Spontaneous or Elective: 0 Number of Living Children: 0 - Gestational Age Gestational Age by SEAMUS (wks/days): 31 Weeks and 4 Days Review of Systems - Review of Systems Constitutional: No problems Breast: No problems ENT: No problems Cardiovascular: No problems Respiratory: No problems Gastrointestinal: No problems Genitourinary: No problems Musculoskeletal: No problems Neurological: No problems Skin: No problems Vital Signs - Temperature Temperature: 98.3 F Temperature Source: Oral - Pulse Pulse Oximetery Pulse Rate: 94 Pulse Assessment Method: Pulse Oximetry - Respirations Respiratory Rate: 18 Oxygen Delivery Method: Room Air O2 Sat by Pulse Oximetry: 98 - Blood Pressure Right Arm Blood Pressure: 135/65 Blood Pressure Mean: 88 Blood Pressure Source: Automatic Cuff Medical Screen Scoring - Assessment - Baby A Baseline FHR: 135 Heart Rate - NICHD Category: Category I (Normal) NST: Reactive Physician Notification - Physician Notified Physician Notified Date: 01/27/24 Physician Notified Time: 23:20 Physician: Flakita New Order Received: Yes - Notification Comment Comment: Dr. Boggs called, report given. Pt DOM of Dr. Sales, 31 weeks and 3 days. Presents to triage with c/o decreased movement for an hour and sharp left back pain that radiates to her lower abdomen. NST reactive, cat 1 tones. No cx on monitor or palpated, abd soft non tender. Urine collected and concentrated. Orders to send UA and if negative d/c pt home, otherwise RN to call MD back with results. Lab results reported on, order recieved for 1g IVPB rocephen then d/c home and pt to follow up with Dr. Sales Maternal Triage Index - Maternal Triage Index Presenting for scheduled procedure w/no complaint: No - Stat/Priority 1 Stat Priority 1: No - Urgent/Priority 2 Urgent Priority 2: Yes Provider Notified: Flakita Provider Notified Time: 23:20 Criteria Met for Priority 2: Pt presents to triage with c/o decreased movement for past hour, states she has not felt baby kick at all in an hour. Pt states she also developed a sharp intermittent left back pain that radiates to lower abdominal pain that she rates 6/10 that started around the same time Disposition - Disposition OB Disposition: Discharge to home Discharge Date: 01/28/24 Discharge Time: 01:15 I agree with the RN Medical Screening Exam: Yes Physician's MSE Comment: I have neither seen nor examined the patient. Case reviewed; plan agreed upon as documented in EMR&OBIX.: Yes Diagnosis: RELATED CONDITIONS, UNSPECIFIED, THIRD TRIMESTER
== END 2024-01-28 01:15 | disposition home or self-care (01) ==
LOC: FBPOP 22:45
PROVIDERS: ATTEND Obstetrics & Gynecology
CPT/HCPCS: 59025; 81001; 87086; 96365; 99214

== ENCOUNTER 2024-03-03 16:14 | Outpatient (CLI) | payer BC, OTHER ==
[2024-03-03 17:02] VITALS: BP 127/68; PULSE 98; RESP 18; TEMP 98.4
--- NOTE | 2024-03-24 06:25 | P.MSEPDOC ---
Presenting Problems - Arrival Data Date of Arrival on Unit: 03/03/24 Time of Arrival on Unit: 16:14 Mode of Transport: EMS - Complaint OB-Reason for Admission/Chief Complaint: Possible Onset of Labor Comment: 36.4 weeks contractions since 1520 Medical History - Information : 1 Para: 0 Term: 0 : 0 Abortions: Spontaneous or Elective: 0 Number of Living Children: 0 - Gestational Age Gestational Age by SEAMUS (wks/days): 36 Weeks and 4 Days Review of Systems - Review of Systems Constitutional: No problems Breast: No problems ENT: No problems Cardiovascular: No problems Respiratory: No problems Gastrointestinal: No problems Genitourinary: No problems Musculoskeletal: No problems Neurological: No problems Skin: No problems Vital Signs - Temperature Temperature: 98.4 F Temperature Source: Temporal Artery Scan - Pulse Right Brachial Pulse Rate: 98 Pulse Assessment Method: Automatic Cuff - Respirations Respiratory Rate: 18 Oxygen Delivery Method: Room Air O2 Sat by Pulse Oximetry: 100 - Blood Pressure Right Arm Supine Blood Pressure: 127/68 Blood Pressure Mean: 87 Blood Pressure Source: Automatic Cuff Medical Screen Scoring - Cervical Exam Dilation (cm): 0 Membranes: Intact - Uterine Contractions Frequency From (mins): 10 Frequency To (mins): 10 Duration From (seconds): 70 Duration To (seconds): 90 Intensity: Moderate Resting: Soft to palpation - Assessment - Baby A Baseline FHR: 125 Heart Rate - NICHD Category: Category I (Normal) NST: Reactive Physician Notification - Physician Notified Physician Notified Date: 03/03/24 Physician Notified Time: 17:20 Physician: Ashvin Brothers Order Received: Yes Maternal Triage Index - Maternal Triage Index Presenting for scheduled procedure w/no complaint: No - Stat/Priority 1 Stat Priority 1: No - Urgent/Priority 2 Urgent Priority 2: No - Prompt/Priority 3 Prompt Priority 3: Yes Criteria Met for Priority 3: 36.4 contractions Disposition - Disposition OB Disposition: Triage, Discharge to home, Written follow up instructions reviewed Discharge Date: 03/03/24 Discharge Time: 17:30 I agree with the RN Medical Screening Exam: Yes Physician's MSE Comment: I have neither seen nor examined the patient. Case reviewed; plan agreed upon as documented in EMR&OBIX.: Yes Diagnosis: RELATED CONDITIONS, UNSPECIFIED, THIRD TRIMESTER
== END 2024-03-03 17:30 | disposition home or self-care (01) ==
LOC: FBPOP 16:14
PROVIDERS: ATTEND Obstetrics & Gynecology
DX: O47.03 False labor before 37 completed weeks of gestation, third trimester (principal); Z3A.36 36 weeks gestation of pregnancy
CPT/HCPCS: 59025; G0463; 99213

== ENCOUNTER 2024-03-08 09:13 | Outpatient (CLI) | payer BC, OTHER ==
[2024-03-08 12:16] VITALS: BP 130/67; PULSE 88; RESP 16; TEMP 97.4
--- NOTE | 2024-03-10 12:12 | P.MSEPDOC ---
Presenting Problems - Arrival Data Date of Arrival on Unit: 03/08/24 Time of Arrival on Unit: 09:15 Mode of Transport: EMS - Complaint OB-Reason for Admission/Chief Complaint: Possible Onset of Labor Comment: 37 0/7 weeks gestation. c/o severe contx at work. 1-2 minutes apart. Medical History - Information : 1 Para: 0 Term: 0 : 0 Abortions: Spontaneous or Elective: 0 Number of Living Children: 0 - Gestational Age Gestational Age by SEAMUS (wks/days): 37 Weeks and 0 Days Review of Systems - Review of Systems Constitutional: No problems Breast: No problems ENT: No problems Cardiovascular: No problems Respiratory: No problems Gastrointestinal: No problems Genitourinary: No problems Musculoskeletal: No problems Neurological: No problems Skin: No problems Vital Signs - Temperature Temperature: 97.4 F Temperature Source: Temporal Artery Scan - Pulse Apical Pulse Rate: 88 Pulse Assessment Method: Automatic Cuff - Respirations Respiratory Rate: 16 Oxygen Delivery Method: Room Air O2 Sat by Pulse Oximetry: 98 - Blood Pressure Right Arm Blood Pressure: 130/67 Blood Pressure Mean: 88 Blood Pressure Source: Automatic Cuff Medical Screen Scoring - Cervical Exam Dilation (cm): 0 Effacement (%): 0 Membranes: Intact - Uterine Contractions Intensity: Mild Resting: Soft to palpation - Assessment - Baby A Baseline FHR: 130 Heart Rate - NICHD Category: Category I (Normal) NST: Reactive Physician Notification - Physician Notified Physician Notified Date: 03/08/24 Physician Notified Time: 10:00 Physician: Мария Enriquez New Order Received: Yes (may return home if no crevical change and reactive nst) Maternal Triage Index - Maternal Triage Index Presenting for scheduled procedure w/no complaint: No - Stat/Priority 1 Stat Priority 1: No - Urgent/Priority 2 Urgent Priority 2: No - Prompt/Priority 3 Prompt Priority 3: No - Non-Urgent/Priority 4 Non-Urgent Priority 4: Yes Criteria Met for Priority 4: closed. irreg contx. reactive nst Disposition - Disposition OB Disposition: Discharge to home, Written follow up instructions reviewed Discharge Date: 03/08/24 Discharge Time: 10:45 I agree with the RN Medical Screening Exam: Yes Case reviewed; plan agreed upon as documented in EMR&OBIX.: Yes Diagnosis: FALSE LABOR BEFORE 37 COMPLETED WEEKS OF GEST, THIRD TRI
== END 2024-03-08 10:45 | disposition home or self-care (01) ==
LOC: FBPOP 09:13
PROVIDERS: ATTEND Obstetrics & Gynecology Obstetrics
DX: O47.1 False labor at or after 37 completed weeks of gestation (principal); Z3A.37 37 weeks gestation of pregnancy
CPT/HCPCS: 59025; 99213

== ENCOUNTER 2024-05-06 13:13 | Observation (INO) | payer BC, OTHER ==
--- NOTE | 2024-05-06 13:40 | ED ---
Recheck HPI - General Source: patient, RN notes reviewed Mode of arrival: ambulatory Limitations: no limitations <Lesley Foss - Last Filed: 05/06/24 13:35> <Yola Lundy - Last Filed: 05/07/24 18:25> - General Chief Complaint: Recheck/Abnormal Lab/Rx Stated Complaint: Hypertension Time Seen by Provider: 05/06/24 13:30 - History of Present Illness Initial Comments: Quick Note: This is a 23-year-old female who presents to the emergency department for elevated blood pressure. Patient delivered her first baby on 03/27. States that the was not complicated. She went for a checkup with her OB, Dr. Sales today. Her blood pressure was found to be elevated and she was advised to come here for further evaluation. Denies any history of preeclampsia or other complications. Does not believe that she previously had elevated blood pressure. Denies any headaches but does report visual changes. States that this may be due to her needing new glasses. (Lesley Foss) Patient is a 23-year-old female presenting today for elevated blood pressure. Patient was at her OBs visit when they measured a systolic blood pressure of 112. Patient endorses intermittent blurry vision and abdominal pain times last 2 days. Patient delivered first baby 03/27. No history of preeclampsia or complications. Patient takes escitalopram and Adderall, began taking Adderall about 1 week ago. The patient currently denies headaches, vision changes, numbness, weakness, slurred speech, chest pain, shortness of breath, lower extremity swelling. States she was having intermittent left lower quadrant pain denies any right upper quadrant pain, Denies new or heavy vaginal bleeding, dysuria, hematuria, diarrhea, N/V. (Yola Lundy) - Related Data Home Medications Medication Instructions Recorded Confirmed Sertraline [Zoloft] 50 mg PO DAILY 05/07/24 05/07/24 Previous Rx's Medication Instructions Recorded amLODIPine [Norvasc] 5 mg PO DAILY #30 tab 05/07/24 Allergies Allergy/AdvReac Type Severity Reaction Status Date / Time No Known Allergies Allergy Verified 05/07/24 08:25 Review of Systems ROS Other: All systems not noted in ROS Statement are negative. <Lesley Foss - Last Filed: 05/06/24 13:35> ROS Other: All systems not noted in ROS Statement are negative. <Yola Lundy - Last Filed: 05/07/24 18:25> ROS Statement: Those systems with pertinent positive or pertinent negative responses have been documented in the HPI. Past Medical History Past Medical History: No Reported History Additional Past Medical History / Comment(s): R ankle fracture History of Any Multi-Drug Resistant Organisms: None Reported Past Surgical History: No Surgical Hx Reported Past Anesthesia/Blood Transfusion Reactions: Unable to Obtain Additional Past Anesthesia/Blood Transfusion Reaction / Comment(s): Pt has never had anesthesia or a blood transfusion. Past Psychological History: No Psychological Hx Reported, ADD/ADHD Smoking Status: Vaper Past Alcohol Use History: Occasional Past Drug Use History: Marijuana - Past Family History Mother Additional Family Medical History / Comment(s): Pt is adopted. <Lesley Foss - Last Filed: 05/06/24 13:35> General Exam Limitations: no limitations <Lesley Foss - Last Filed: 05/06/24 13:35> <Yola Lundy - Last Filed: 05/07/24 18:25> - General Exam Comments Initial Comments: Visual Physical Exam Vital signs reviewed General: Well-appearing, nontoxic, no acute distress. Head: Normocephalic, atraumatic Eyes: PERRLA, EOMI ENT: Airway patent Chest: Nonlabored breathing Skin: No visual rash, normal skin tone Neuro: Alert and oriented 3 Musculoskeletal: No gross abnormalities (Lesley Foss) PE: CONSTITUTIONAL: No apparent distress, well appearing SKIN: Warm, dry, no jaundice, hives or petechiae EYES: Pupils are equally round, extraocular movements intact without nystagmus, clear conjunctiva, non-icteric sclera HENT: Normocephalic, atraumatic, moist mucus membranes, oropharynx clear without exudates NECK: , Full range of motion, normal appearance PULMONARY: Clear to auscultation without wheezes, rhonchi, or rales, normal excursion, no accessory muscle use and no stridor CARDIOVASCULAR: Regular rate, rhythm, normal S1 and S2. No appreciated murmurs, rubs or gallops. Strong radial pulses with intact distal perfusion. No lower extremity edema GASTROINTESTINAL: Soft, active bowel sounds throughout, non-tender, non- distended, no palpable masses, no rebound or guarding. No hepatosplenomegaly GENITOURINARY: MUSCULOSKELETAL: Extremities have no gross deformity, no edema, redness, or swelling. No calf swelling NEUROLOGIC:_a/o x 3, GCS 15, normal mentation and speech. Moves all extremities x 4 without motor or sensory deficit, cranial nerves: II (visual yu without defects), III, IV and (extraocular movements are intact, pupils are equal with normal reaction to light), V (intact facial sensation and jaw opening), VII (no facial droop), IX and X (normal palate movement, midline uvula, normal voice), XI (symmetrical shoulder shrug and lateral head rotation against resistance), XII (midline tongue protrusion). Motor strength is 5/5 in all extremities. No abnormal movements. Normal muscle tone. Sensation to light touch is intact bilaterally. No cerebellar signs ([id number], [id number] testing normal, ) PSYCHIATRIC:_normal mood and affect, thought process is clear and linear (Yola Lundy) Course Vital Signs 05/06/24 05/06/24 05/06/24 13:28 18:25 18:29 Temperature 98.2 F Pulse Rate 61 57 L Respiratory 16 20 Rate Blood Pressure 171/105 189/116 173/106 O2 Sat by Pulse 99 100 Oximetry 05/06/24 05/06/24 05/06/24 18:47 21:00 22:00 Temperature Pulse Rate 60 70 55 L Respiratory 22 18 18 Rate Blood Pressure 158/102 151/91 154/87 O2 Sat by Pulse 100 100 100 Oximetry 05/06/24 05/07/24 05/07/24 23:00 00:00 06:00 Temperature Pulse Rate 59 L 67 70 Respiratory 18 18 16 Rate Blood Pressure 152/82 156/99 147/101 O2 Sat by Pulse 100 100 99 Oximetry 05/07/24 05/07/24 05/07/24 09:00 12:06 18:05 Temperature 98.1 F 97.6 F Pulse Rate 61 58 L 54 L Respiratory 15 17 15 Rate Blood Pressure 150/100 147/91 154/96 O2 Sat by Pulse 99 98 100 Oximetry Medical Decision Making <Lesley Foss - Last Filed: 05/06/24 13:35> - Lab Data Result diagrams: 05/06/24 16:02 05/06/24 14:19 <Yola Lundy - Last Filed: 05/07/24 18:25> - Medical Decision Making I performed the QuickNote portion of this chart. Signed Lesley Foss PA-C. (Lesley Foss) Was pt. sent in by a medical professional or institution (SONIA Fernandez, HELP DESK OPERATOR, urgent care, hospital, or [facility]...) When possible be specific @Patient was sent in by her OB, Dr. Sales Did you speak to anyone other than the patient for history (EMS, parent, family, police, friend...)? What history was obtained from this source @ -No Did you review nursing and triage notes (agree or disagree)? Why? @ -I reviewed nursing and triage notes Were old charts reviewed (outside hosp., previous admission, EMS record, old EKG, old radiological studies, urgent care reports/EKG's, [facility] records)? Report findings @Medical records reviewed,Of note patient was seen by OB here on 11/11/2023 after she was told to come in by Dr. Sales due to a "high blood pressure reading" and protein in her urine, blood pressure at that time was 140/66 Differential Diagnosis (chest pain, altered mental status, abdominal pain women, abdominal pain men, vaginal bleeding, weakness, fever, dyspnea, syncope, headache, dizziness, GI bleed, back pain, seizure, CVA, palpatations, mental health, musculoskeletal)? @Differential diagnose remains broad over top considerations include hy pertensive urgency, hypertensive emergency/preeclampsia, uncontrolled hypertension, medication side effect this is not an all-inclusive list EKG interpreted by me (3pts min.). Sinus bradycardia, rate 56 bpm, MT interval 162 ms QRS duration 83 ms QT/QTc 384/376 ms, normal axis, no ST elevations or depressions X-rays interpreted by me (1pt min.). @ -None done CT interpreted by me (1pt min.). @No signs of hemorrhage or mass effect on CT brain U/S interpreted by me (1pt. min.). @ -None done What testing was considered but not performed or refused? (CT, X-rays, U/S, labs)? Why? @ -None What meds were considered but not given or refused? Why? @ -None Did you discuss the management of the patient with other professionals (professionals i.e. Dr., PA, HELP DESK OPERATOR, lab, RT, psych nurse, social and political studies professor, travel consultant, teacher, bsa officer, sample case porter)? Give summary Case was discussed with Dr. Vianca Boyd, states that patient is too far out from delivery to be preeclamptic at this point, rec's evaluating for other causes of HTN Was smoking cessation discussed for >3mins.? @ -No Was critical care preformed (if so, how long)? @ -No Were there social determinants of health that impacted care today? How? (Home lessness, low income, unemployed, alcoholism, drug addiction, transportation, low edu. Level, literacy, decrease access to med. care, nursing home, rehab)? @ -No Was there de-escalation of care discussed even if they declined (Discuss DNR or withdrawal of care, Hospice)? @ -No What co-morbidities impacted this encounter? (DM, HTN, Smoking, COPD, CAD, Cancer, CVA, ARF, Chemo, Hep., AIDS, mental health diagnosis, sleep apnea, morbid obesity)? @ -Post Was patient admitted / discharged? Hospital course, mention meds given and route, prescriptions, significant lab abnormalities, going to OR and other pertinent info. @Admission -patient is a 23 y/o female presenting today for HTN, 6 weeks post pa rtum. Patient initially in waiting room for extended period 2/2 surge capacity reached in ED. seen and assessed upon rooming. On my assessment blood pressure 189/116. Ordered 20 mg labetalol. Patient currently asymptomatic though endorsed intermittent blurry vision at home x 2 days. Reviewed labs obtained in triage, no thrombocytopenia, uric acid is 8.9, slightly elevated creatinine at 0.78, only 1+ protein, small leukocyte esterase, UDS positive for amphetamines and marijuana however patient does take Adderall at home. A troponin was obtained did well to assess for endorgan damage and was 0 point less than 0.012. Chest x-rays not obtained as patient has no shortness of breath or chest pain and has reassuring cardiopulmonary exam. Case discussed with Dr. Brothers, who feels patient is too far out from delivery to be considered pre-eclamptic and feels HTN more likely 2/2 to other etiology. Repeat BP 158/102, then on my reassessment 148/60. Patient currently endorses mild dizziess, since labetolol administration, POC glucose 112. . Patient has had a bottle of Mt. Dew since arrival and I advised her to stop her Mt. Dew intake as this may be exacerbating her hypertension. Suspect HTN likely 2/2 recently restarted Adderall as well as excessive caffeine intake however due to patient's intermittent blurred vision over the last 2 days and uncontrolled blood pressure on arrival I feel she would benefit from admission for observation to further monitor her blood pressure, ensure no development of new symptoms concerning for hypertensive emergency, etc. Pt agreeable with POC. Case discussed with Dr. Gomez, kindly accepts patient for admission. Undiagnosed new problem with uncertain prognosis? @ -No Drug Therapy requiring intensive monitoring for toxicity (Heparin, Nitro, Insulin, Cardizem)? @ -No Were any procedures done? @ -No Diagnosis/symptom? @Hypertensive urgency Acute, or Chronic, or Acute on Chronic? @ -Acute Uncomplicated (without systemic symptoms) or Complicated (systemic symptoms)? @Complicated Side effects of treatment? @ -No Exacerbation, Progression, or Severe Exacerbation? @ -No Poses a threat to life or bodily function? How? (Chest pain, [place], [place], pneumonia, PE, COPD, DKA, ARF, appy, cholecystitis, CVA, Diverticulitis, Homicidal, Suicidal, threat to staff... and all critical care pts) Potentially, if left untreated hypertensive urgency could result in hypertensive emergency/ severe end organ damage (Yola Lundy) - Lab Data Lab Results 05/06/24 05/06/24 05/06/24 Range/Units 14:19 14:30 14:30 WBC (3.8-10.6) k/uL RBC (3.80-5.40) m/uL Hgb (11.4-16.0) gm/dL Hct (34.0-46.0) % MCV (80.0-100.0) fL MCH (25.0-35.0) pg MCHC (31.0-37.0) g/dL RDW (11.5-15.5) % Plt Count (150-450) k/uL MPV Neutrophils % % Lymphocytes % % Monocytes % % Eosinophils % % Basophils % % Neutrophils # (1.3-7.7) k/uL Lymphocytes # (1.0-4.8) k/uL Monocytes # (0-1.0) k/uL Eosinophils # (0-0.7) k/uL Basophils # (0-0.2) k/uL Hypochromasia Anisocytosis Microcytosis Sodium 139 (137-145) mmol/L Potassium 4.1 (3.5-5.1) mmol/L Chloride 105 (98-107) mmol/L Carbon Dioxide 24 (22-30) mmol/L Anion Gap 10 mmol/L BUN 11 (7-17) mg/dL Creatinine 0.78 (0.52-1.04) mg/dL Est GFR (CKD-EPI)AfAm >90 (>60 ml/min/1.73 sqM) Est GFR (CKD-EPI)NonAf >90 (>60 ml/min/1.73 sqM) Glucose 82 (74-99) mg/dL POC Glucose (mg/dL) (70-110) mg/dL POC Glu [employer] ID Uric Acid 8.9 H (3.7-7.4) mg/dL Calcium 9.6 (8.4-10.2) mg/dL Magnesium 1.7 (1.6-2.3) mg/dL Total Bilirubin 0.2 (0.2-1.3) mg/dL AST 20 (14-36) U/L ALT 13 (4-34) U/L Alkaline Phosphatase 88 (38-126) U/L Lactate Dehydrogenase 223 (120-246) U/L Troponin I (0.000-0.034) ng/mL Total Protein 7.8 (6.3-8.2) g/dL Albumin 4.4 (3.5-5.0) g/dL Urine Color Colorless Urine Appearance Cloudy H (Clear) Urine pH 6.5 (5.0-8.0) Ur Specific Sherrill 1.013 (1.001-1.035) Urine Protein 1+ H (Negative) Urine Glucose (UA) Negative (Negative) Urine Ketones Negative (Negative) Urine Blood Negative (Negative) Urine Nitrite Negative (Negative) Urine Bilirubin Negative (Negative) Urine Urobilinogen <2.0 (<2.0) mg/dL Ur Leukocyte Esterase Small H (Negative) Urine RBC 1 (0-5) /hpf Urine WBC 3 (0-5) /hpf Ur Squamous Epith Cells 19 H (0-4) /hpf Amorphous Sediment Rare H (None) /hpf Urine Bacteria Rare H (None) /hpf Urine Mucus Rare H (None) /hpf Urine Opiates Screen Not Detected (NotDetected) Ur Oxycodone Screen Not Detected (NotDetected) Urine Methadone Screen Not Detected (NotDetected) Ur Barbiturates Screen Not Detected (NotDetected) U Tricyclic Antidepress Not Detected (NotDetected) Ur Phencyclidine Scrn Not Detected (NotDetected) Ur Amphetamines Screen Detected H (NotDetected) U Methamphetamines Scrn Not Detected (NotDetected) U Benzodiazepines Scrn Not Detected (NotDetected) Urine Cocaine Screen Not Detected (NotDetected) U Marijuana (THC) Screen Detected H (NotDetected) 05/06/24 05/06/24 05/06/24 Range/Units 16:02 18:47 21:06 WBC 4.0 (3.8-10.6) k/uL RBC 4.57 (3.80-5.40) m/uL Hgb 11.2 L (11.4-16.0) gm/dL Hct 34.5 (34.0-46.0) % MCV 75.4 L (80.0-100.0) fL MCH 24.4 L (25.0-35.0) pg MCHC 32.4 (31.0-37.0) g/dL RDW 16.0 H (11.5-15.5) % Plt Count 336 (150-450) k/uL MPV 6.9 Neutrophils % 45 % Lymphocytes % 41 % Monocytes % 5 % Eosinophils % 5 % Basophils % 1 % Neutrophils # 1.8 (1.3-7.7) k/uL Lymphocytes # 1.7 (1.0-4.8) k/uL Monocytes # 0.2 (0-1.0) k/uL Eosinophils # 0.2 (0-0.7) k/uL Basophils # 0.0 (0-0.2) k/uL Hypochromasia Slight Anisocytosis Slight Microcytosis Slight Sodium (137-145) mmol/L Potassium (3.5-5.1) mmol/L Chloride (98-107) mmol/L Carbon Dioxide (22-30) mmol/L Anion Gap mmol/L BUN (7-17) mg/dL Creatinine (0.52-1.04) mg/dL Est GFR (CKD-EPI)AfAm (>60 ml/min/1.73 sqM) Est GFR (CKD-EPI)NonAf (>60 ml/min/1.73 sqM) Glucose (74-99) mg/dL POC Glucose (mg/dL) 112 H (70-110) mg/dL POC Glu [employer] ID Jihan Kermit Uric Acid (3.7-7.4) mg/dL Calcium (8.4-10.2) mg/dL Magnesium (1.6-2.3) mg/dL Total Bilirubin (0.2-1.3) mg/dL AST (14-36) U/L ALT (4-34) U/L Alkaline Phosphatase (38-126) U/L Lactate Dehydrogenase (120-246) U/L Troponin I <0.012 (0.000-0.034) ng/mL Total Protein (6.3-8.2) g/dL Albumin (3.5-5.0) g/dL Urine Color Urine Appearance (Clear) Urine pH (5.0-8.0) Ur Specific Sherrill (1.001-1.035) Urine Protein (Negative) Urine Glucose (UA) (Negative) Urine Ketones (Negative) Urine Blood (Negative) Urine Nitrite (Negative) Urine Bilirubin (Negative) Urine Urobilinogen (<2.0) mg/dL Ur Leukocyte Esterase (Negative) Urine RBC (0-5) /hpf Urine WBC (0-5) /hpf Ur Squamous Epith Cells (0-4) /hpf Amorphous Sediment (None) /hpf Urine Bacteria (None) /hpf Urine Mucus (None) /hpf Urine Opiates Screen (NotDetected) Ur Oxycodone Screen (NotDetected) Urine Methadone Screen (NotDetected) Ur Barbiturates Screen (NotDetected) U Tricyclic Antidepress (NotDetected) Ur Phencyclidine Scrn (NotDetected) Ur Amphetamines Screen (NotDetected) U Methamphetamines Scrn (NotDetected) U Benzodiazepines Scrn (NotDetected) Urine Cocaine Screen (NotDetected) U Marijuana (THC) Screen (NotDetected) Disposition <Lesley Foss - Last Filed: 12/30/24 13:35> <Yola Lundy - Last Filed: 05/07/24 18:25> Clinical Impression: Hypertensive urgency Disposition: ADMITTED IP TO THIS HOSP Condition: Stable
[2024-05-06 14:36] LABS: ALT 13 U/L (4-34); AST 20 U/L (14-36); African American GFR (CKD) >90 (>60 ml/min/1.73 sqM); Albumin 4.4 g/dL (3.5-5.0); Alkaline Phosphatase 88 U/L (38-126); Anion Gap 10 mmol/L; Blood Urea Nitrogen 11 mg/dL (7-17); Calcium 9.6 mg/dL (8.4-10.2); Carbon Dioxide 24 mmol/L (22-30); Chloride 105 mmol/L (98-107); Glucose 82 mg/dL (74-99); LDH 223 U/L (120-246); Magnesium 1.7 mg/dL (1.6-2.3); Non-African American GFR(CKD) >90 (>60 ml/min/1.73 sqM); Potassium 4.1 mmol/L (3.5-5.1); Sodium 139 mmol/L (137-145); Total Bilirubin 0.2 mg/dL (0.2-1.3); Total Protein 7.8 g/dL (6.3-8.2); Uric Acid 8.9 mg/dL (3.7-7.4)
[2024-05-06 15:01] LABS: Amorphous Sediment,Urine Rare /hpf; Bacteria,Urine Rare /hpf; Mucus,Urine Rare /hpf; RBC,Urine 1 /hpf (0-5); Squamous Epithelial Cell,Urine 19 /hpf (0-4); WBC,Urine 3 /hpf (0-5)
[2024-05-06 15:11] LABS: Amphetamine Screen,Urine Detected (NotDetected); Barbiturate Screen,Urine Not Detected (NotDetected); Benzodiazepines Screen,Urine Not Detected (NotDetected); Cocaine Screen,Urine Not Detected (NotDetected); Methadone Screen, Urine Not Detected (NotDetected); Opiate Screen,Urine Not Detected (NotDetected); Oxycodone Screen, Urine Not Detected (NotDetected); Phencyclidine Screen,Urine Not Detected (NotDetected); Tricyclic Antidepressant,Urine Not Detected (NotDetected); Urn Cannabinoid Scrn Detected (NotDetected)
[2024-05-06 15:28] LABS: Appearance,Urine Cloudy (Clear); Bilirubin,Urine Negative (Negative); Blood,Urine Negative (Negative); Color,Urine Colorless; Glucose,Urine (UA) Negative (Negative); Ketones,Urine Negative (Negative); Leukocyte Esterase,Urine Small (Negative); Nitrite,Urine Negative (Negative); PH, Urine 6.5 (5.0-8.0); Protein,Urine 1+ (Negative); Specific Gravity,Urine 1.013 (1.001-1.035); Urobilinogen,Urine <2.0 mg/dL (<2.0)
[2024-05-06 16:31] LABS: Anisocytosis Slight; Basophils % (A) 1 %; Eosinophils # (A) 0.2 k/uL (0-0.7); Eosinophils % (A) 5 %; HCT 34.5 % (34.0-46.0); HGB 11.2 gm/dL (11.4-16.0); Hypochromasia Slight; Lymphocytes # (A) 1.7 k/uL (1.0-4.8); Lymphocytes % (A) 41 %; MCH 24.4 pg (25.0-35.0); MCHC 32.4 g/dL (31.0-37.0); MCV 75.4 fL (80.0-100.0); Mean Platelet Volume 6.9; Microcytosis Slight; Monocytes # (A) 0.2 k/uL (0-1.0); Monocytes % (A) 5 %; Neutrophils # (A) 1.8 k/uL (1.3-7.7); Neutrophils % (A) 45 %; Platelet Count 336 k/uL (150-450); RBC 4.57 m/uL (3.80-5.40)
[2024-05-06] MEDS: LABETALOL 5 MG/ML VIAL MDV IVP STA (18:41)
--- NOTE | 2024-05-06 20:23 | CT ---
EXAMINATION TYPE: CT brain wo con DATE OF EXAM: 05/06/2024 7:43 PM COMPARISON: None. CLINICAL INDICATION: Female, 23 years old with history of int. blurry vision, preeclampsia, At Ob for a follow up and her siastolic number was 120. Delivered a baby here on 03/27. No issues during pregn funmilayo. Patient reports some blurry vision and low abd pain. Also reports some suicidal thoughts since delivering. TECHNIQUE: CT of the brain is performed utilizing 3 mm thick sections through the posterior fossa and 3 mm thick sections through the remaining calvarium. Study is performed within 24 hours of arrival to the hospital. Contrast used: mL of , (none if empty) CT DLP: 1125.4 mGycm, Automated exposure control for dose reduction was used. FINDINGS: No abnormal hyperdensity is present to suggest an acute intracranial hemorrhage. No mass lesion is evident. No acute infarcts are evident. Ventricles and sulci are appropriate for the patient age. Paranasal sinuses and mastoid air cells within the [id number] are clear. IMPRESSION: 1. No acute intracranial process. Follow up MRI can be performed as clinically indicated. [facility], , 05/06/2024 8:20 PM
[2024-05-06 21:08] LABS: Glucose,Whole Blood 112 mg/dL (70-110)
[2024-05-06] MEDS ORDERED: NALOXONE 0.4 MG/ML 1 ML VIAL IV PRN (22:04)
[2024-05-06] MEDS ORDERED: ALPRAZolam 0.25 MG TAB PO PRN (22:04)
[2024-05-06] MEDS ORDERED: ACETAMINOPHEN TAB 325 MG TAB PO PRN (22:04)
[2024-05-07] MEDS: ENOXAPARIN 40 MG/0.4 ML SYRINGE SQ SCH (09:06)
[2024-05-07] MEDS: amLODIPine 5 MG TAB PO SCH (09:42)
--- NOTE | 2024-05-07 12:49 | P.CRDCN ---
History of Present Illness History of present illness: HISTORY OF PRESENT ILLNESS: This is a 23-year-old female with a past medical history significant for marijuana use and ADHD. Patient does not follow with a in file operator. We have been asked to see the patient in consultation for hypertension. Patient examined at the bedside in the emergency room. Patient just gave to her first child last month. She is currently not breast-feeding. Patient states she was at her follow-up appointment yesterday with her OB when her diastolic blood pressure was noted to be in the 120s. She was directed to come to the emergency room. The patient denies any known history of hypertension. The patient recently began taking Adderall again for her ADHD. She states she has been taking this medication for many years however she stopped taking it while she was . The patient is currently asymptomatic. She denies any chest pain or pressure. Denies any shortness of breath. She has been started on amlodipine per primary medicine for hypertension. DIAGNOSTICS: - EKG reveals sinus mechanism with no signs of acute ischemia. - Laboratory data: WBC 4.0. Hemoglobin 11.2. Platelet count 336. Sodium 139. Potassium 4.1. BUN 11. Creatinine 0.78. Troponin negative x 1 urine with 1+ protein. - Current home cardiac medications include none. REVIEW OF SYSTEMS: At the time of my exam: CONSTITUTIONAL: Denies fever or chills. HEENT: Denies blurred vision, vision changes, or eye pain. Denies hemoptysis CARDIOVASCULAR: Denies chest pain. Denies orthopnea. Denies PND. Denies palpitations RESPIRATORY: Denies shortness of breath. GASTROINTESTINAL: Denies abdominal pain. Denies nausea or vomiting. HEMATOLOGIC: Denies bleeding disorders. GENITOURINARY: Denies any blood in urine. SKIN: Denies pruitis. Denies rash. PHYSICAL EXAM: VITAL SIGNS: Reviewed. GENERAL: Well-developed in no acute distress. HEENT: Head is normocephalic. Pupils are equal, round. Sclerae anicteric. Mucous membranes of the mouth are moist. Neck supple. No JVD or thyromegaly LUNGS: Respirations even and unlabored. Lungs essentially clear to auscultation bilaterally. HEART: Regular rate and rhythm. S1 and S2 heard. ABDOMEN: Soft. Nondistended. Nontender. EXTREMITIES: Normal range of motion. No clubbing or cyanosis. Peripheral pulses intact. No lower extremity edema NEUROLOGIC: Awake and alert. Oriented x 3. ASSESSMENT: Hypertensive urgency ADHD, recently resumed Adderall Status postdelivery of baby, 03/27/2024 Marijuana use Obesity: BMI 38.8 PLAN: Obtain 2D echo to assess cardiac structure and function Continue current dose of amlodipine Patient instructed that Adderall may be contributing to hypertension. Recommend discontinuing if possible. Recommend abstinence from marijuana use Recommend eventual testing for obstructive sleep apnea Recommend weight loss Continue to monitor blood pressure Further recommendations pending patient course Nurse practitioner note has been reviewed by physician. Signing provider agrees with the documented findings, assessment, and plan of care documented by CONSTRUCTION REPRESENTATIVE as a scribe. Past Medical History Past Medical History: No Reported History Additional Past Medical History / Comment(s): R ankle fracture History of Any Multi-Drug Resistant Organisms: None Reported Past Surgical History: No Surgical Hx Reported Past Anesthesia/Blood Transfusion Reactions: Unable to Obtain Additional Past Anesthesia/Blood Transfusion Reaction / Comment(s): Pt has never had anesthesia or a blood transfusion. Past Psychological History: No Psychological Hx Reported, ADD/ADHD Smoking Status: Vaper Past Alcohol Use History: Occasional Past Drug Use History: Marijuana - Past Family History Mother Additional Family Medical History / Comment(s): Pt is adopted. Medications and Allergies Home Medications Medication Instructions Recorded Confirmed Type Dextroamphetamine/Amphetamine 15 mg PO DAILY 05/07/24 05/07/24 History [Adderall Xr 15 mg Capsule] Sertraline [Zoloft] 50 mg PO DAILY 05/07/24 05/07/24 History Allergies Allergy/AdvReac Type Severity Reaction Status Date / Time No Known Allergies Allergy Verified 05/07/24 08:25 Physical Exam Vitals: Vital Signs Temp Pulse Resp BP Pulse Ox 05/07/24 12:06 58 L 17 147/91 98 05/07/24 09:00 98.1 F 61 15 150/100 99 05/07/24 06:00 70 16 147/101 99 05/07/24 00:00 67 18 156/99 100 05/06/24 23:00 59 L 18 152/82 100 05/06/24 22:00 55 L 18 154/87 100 05/06/24 21:00 70 18 151/91 100 05/06/24 18:47 60 22 158/102 100 05/06/24 18:29 57 L 20 173/106 100 05/06/24 18:25 189/116 05/06/24 13:28 98.2 F 61 16 171/105 99 Results 05/06/24 16:02 05/06/24 14:19 Cardiac Enzymes 05/06/24 05/06/24 Range/Units 14:19 18:47 AST 20 (14-36) U/L Lactate Dehydrogenase 223 (120-246) U/L Troponin I <0.012 (0.000-0.034) ng/mL CBC 05/06/24 Range/Units 16:02 WBC 4.0 (3.8-10.6) k/uL RBC 4.57 (3.80-5.40) m/uL Hgb 11.2 L (11.4-16.0) gm/dL Hct 34.5 (34.0-46.0) % Plt Count 336 (150-450) k/uL Comprehensive Metabolic Panel 05/06/24 Range/Units 14:19 Sodium 139 (137-145) mmol/L Potassium 4.1 (3.5-5.1) mmol/L Chloride 105 (98-107) mmol/L Carbon Dioxide 24 (22-30) mmol/L BUN 11 (7-17) mg/dL Creatinine 0.78 (0.52-1.04) mg/dL Glucose 82 (74-99) mg/dL Calcium 9.6 (8.4-10.2) mg/dL AST 20 (14-36) U/L ALT 13 (4-34) U/L Alkaline Phosphatase 88 (38-126) U/L Total Protein 7.8 (6.3-8.2) g/dL Albumin 4.4 (3.5-5.0) g/dL Current Medications Generic Name Dose Route Start Last Admin Trade Name Freq PRN Reason Stop Dose Admin Acetaminophen 650 mg 05/06/24 22:04 Acetaminophen Tab 325 Mg Tab PO Q6HR PRN Mild Pain or Fever > 100.5 Alprazolam 0.25 mg 05/06/24 22:04 Alprazolam 0.25 Mg Tab PO Q6HR PRN Anxiety Amlodipine Besylate 5 mg 05/07/24 09:45 05/07/24 09:42 Amlodipine 5 Mg Tab PO 5 mg DAILY JOSE Administration Enoxaparin Sodium 40 mg 05/07/24 09:00 05/07/24 09:06 Enoxaparin 40 Mg/0.4 Ml Syringe SQ Not Given DAILY JOSE Naloxone HCl 0.2 mg 05/06/24 22:04 Naloxone 0.4 Mg/Ml 1 Ml Vial IV Q2M PRN Opioid Reversal 05/06/24 16:02 05/06/24 14:19
--- NOTE | 2024-05-07 16:05 | P.HPIM ---
History of Present Illness H&P Date: 05/07/24 History of present illness; patient is a 23-year-old lady with past medical history significant for recent who presented the ER for elevated blood pressure. Patient is currently 1 month and had an uncomplicated with delivery. Patient was following up with her [facility]. She was found to have elevated blood pressure. Patient denies any chest pain or palpitations. Patient has been complaining of recent blurred vision. Denies any headaches. Denies any nausea or vomiting. There is no complaint of shortness of breath. Patient blood pressure was found to be elevated at her [facility] visit and was told to come to the ER. Initial lab work done in the ER showed WBC 4, hemoglobin 11.2, platelet count 336, sodium 139, potassium 4.1, BUN 11, creatinine 0.78, uric acid 8.9. Calcium 9.6, Mg 1.7, bilirubin 0.2, AST 20, ALT 1 3 Urine drug screen done showed positive for amphetamine and marijuana UA done showed small amount of leukocyte Estrace, urine WBC 3 CT brain done showed no acute intracranial process CT done showed heart rate of 56, no ST segment elevation seen Patient admitted to internal medicine service REVIEW OF SYSTEMS: CONSTITUTIONAL: No fever, no malaise, no fatigue. HEENT: As mentioned above CARDIOVASCULAR: No chest pain, orthopnea, PND, no palpitations, no syncope. PULMONARY: No shortness of breath, no cough, no hemoptysis. GASTROINTESTINAL: No diarrhea, no nausea, no vomiting, no abdominal pain. NEUROLOGICAL: As mentioned above HEMATOLOGICAL: Denies any bleeding or petechiae. GENITOURINARY: Denies any burning micturition, frequency, or urgency. MUSCULOSKELETAL/RHEUMATOLOGICAL: Denies any joint pain, swelling, or any muscle pain. ENDOCRINE: Denies any polyuria or polydipsia. The rest of the 14-point review of systems is negative. PHYSICAL EXAMINATION: GENERAL: The patient is alert and oriented x3, not in any acute distress. Well developed, well nourished. HEENT: Pupils are round and equally reacting to light. EOMI. No scleral icterus. No conjunctival pallor. Normocephalic, atraumatic. No pharyngeal erythema. No th yromegaly. CARDIOVASCULAR: S1 and S2 present. No murmurs, rubs, or gallops. PULMONARY: Chest is clear to auscultation, no wheezing or crackles. ABDOMEN: Soft, nontender, nondistended, normoactive bowel sounds. No palpable organomegaly. MUSCULOSKELETAL: No joint swelling or deformity. EXTREMITIES: No cyanosis, clubbing, or pedal edema. NEUROLOGICAL: Gross neurological examination did not reveal any focal deficits. SKIN: No rashes. Assessment and plan Uncontrolled hypertension Recent Marijuana abuse obesity Monitor vital signs Monitor CBC Monitor CMP Ordered echo Ordered Norvasc Consult cardiology Consult [facility] Labs and medication were reviewed.. Continue same treatment. Continue with symptomatic treatment. Resume home medication. Monitor labs and vitals. DVT and GI prophylaxis. Further recommendations as per clinical course of the patient Dictation was produced using [employer] dictation software. please excuse any grammatical, word or spelling errors. Past Medical History Past Medical History: No Reported History Additional Past Medical History / Comment(s): R ankle fracture History of Any Multi-Drug Resistant Organisms: None Reported Past Surgical History: No Surgical Hx Reported Past Anesthesia/Blood Transfusion Reactions: Unable to Obtain Additional Past Anesthesia/Blood Transfusion Reaction / Comment(s): Pt has never had anesthesia or a blood transfusion. Past Psychological History: No Psychological Hx Reported, ADD/ADHD Smoking Status: Vaper Past Alcohol Use History: Occasional Past Drug Use History: Marijuana - Past Family History Mother Additional Family Medical History / Comment(s): Pt is adopted. Medications and Allergies Home Medications Medication Instructions Recorded Confirmed Type Sertraline [Zoloft] 50 mg PO DAILY 05/07/24 05/07/24 History amLODIPine [Norvasc] 5 mg PO DAILY #30 tab 05/07/24 Rx Allergies Allergy/AdvReac Type Severity Reaction Status Date / Time No Known Allergies Allergy Verified 05/07/24 08:25 Physical Exam Vitals: Vital Signs Temp Pulse Resp BP Pulse Ox 05/07/24 09:00 98.1 F 61 15 150/100 99 05/07/24 06:00 70 16 147/101 99 05/07/24 00:00 67 18 156/99 100 05/06/24 23:00 59 L 18 152/82 100 05/06/24 22:00 55 L 18 154/87 100 05/06/24 21:00 70 18 151/91 100 05/06/24 18:47 60 22 158/102 100 05/06/24 18:29 57 L 20 173/106 100 05/06/24 18:25 189/116 05/06/24 13:28 98.2 F 61 16 171/105 99 Results CBC & Chem 7: 05/06/24 16:02 05/06/24 14:19 Labs: Abnormal Lab Results - Last 24 Hours (Table) 05/06/24 05/06/24 05/06/24 Range/Units 14:19 14:30 14:30 Hgb (11.4-16.0) gm/dL MCV (80.0-100.0) fL MCH (25.0-35.0) pg RDW (11.5-15.5) % POC Glucose (mg/dL) (70-110) mg/dL Uric Acid 8.9 H (3.7-7.4) mg/dL Urine Appearance Cloudy H (Clear) Urine Protein 1+ H (Negative) Ur Leukocyte Esterase Small H (Negative) Ur Squamous Epith Cells 19 H (0-4) /hpf Amorphous Sediment Rare H (None) /hpf Urine Bacteria Rare H (None) /hpf Urine Mucus Rare H (None) /hpf Ur Amphetamines Screen Detected H (NotDetected) U Marijuana (THC) Screen Detected H (NotDetected) 05/06/24 05/06/24 Range/Units 16:02 21:06 Hgb 11.2 L (11.4-16.0) gm/dL MCV 75.4 L (80.0-100.0) fL MCH 24.4 L (25.0-35.0) pg RDW 16.0 H (11.5-15.5) % POC Glucose (mg/dL) 112 H (70-110) mg/dL Uric Acid (3.7-7.4) mg/dL Urine Appearance (Clear) Urine Protein (Negative) Ur Leukocyte Esterase (Negative) Ur Squamous Epith Cells (0-4) /hpf Amorphous Sediment (None) /hpf Urine Bacteria (None) /hpf Urine Mucus (None) /hpf Ur Amphetamines Screen (NotDetected) U Marijuana (THC) Screen (NotDetected)
--- NOTE | 2024-05-07 16:59 | P.OBCN ---
History of Present Illness Consult date: 05/07/24 Reason for consult: other (Hypertension, relatively recent ) History of present illness: The patient is a 1 para 1-0-0-1 who is between 5 and 6 weeks from normal vaginal delivery having delivered at [facility]. 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 For reasons that are unclear, she presented to the emergency room at [facility] rather than [facility] where she had delivered previously. She had significantly elevated blood pressures here th ough was otherwise asymptomatic without any headache, scotomata, nausea and vomiting, shortness of breath, or any other secondary symptoms. The ER discussed the case with me at which time I reported that this is extraordinarily unlikely to be a case of preeclampsia given the distance from previous delivery. She has otherwise been admitted to internal medicine for management of her hypertension and they have subsequently consulted cardiology. Obstetrical history: 1 para 1-0-0-1 with 1 term delivery Gynecologic history: Unremarkable and noncontributory Review of Systems Review of systems is confined to history of present illness. Past Medical History Past Medical History: No Reported History Additional Past Medical History / Comment(s): R ankle fracture History of Any Multi-Drug Resistant Organisms: None Reported Past Surgical History: No Surgical Hx Reported Past Anesthesia/Blood Transfusion Reactions: Unable to Obtain Additional Past Anesthesia/Blood Transfusion Reaction / Comm: Pt has never had anesthesia or a blood transfusion. Past Psychological History: No Psychological Hx Reported, ADD/ADHD Smoking Status: Vaper Past Alcohol Use History: Occasional Past Drug Use History: Marijuana - Past Family History Mother Additional Family Medical History / Comment(s): Pt is adopted. Medications and Allergies Home Medications Medication Instructions Recorded Confirmed Type Sertraline [Zoloft] 50 mg PO DAILY 05/07/24 05/07/24 History amLODIPine [Norvasc] 5 mg PO DAILY #30 tab 05/07/24 Rx Allergies Allergy/AdvReac Type Severity Reaction Status Date / Time No Known Allergies Allergy Verified 05/07/24 08:25 Exam Vital Signs Temp Pulse Resp BP Pulse Ox 05/07/24 12:06 58 L 17 147/91 98 05/07/24 09:00 98.1 F 61 15 150/100 99 05/07/24 06:00 70 16 147/101 99 05/07/24 00:00 67 18 156/99 100 05/06/24 23:00 59 L 18 152/82 100 05/06/24 22:00 55 L 18 154/87 100 05/06/24 21:00 70 18 151/91 100 05/06/24 18:47 60 22 158/102 100 05/06/24 18:29 57 L 20 173/106 100 05/06/24 18:25 189/116 In general, this is a well-developed, mild to moderately obese -[place] female in no acute distress. Her heart has a regular rhythm and rate without murmur. Her lungs are clear to auscultation bilaterally in all yu. Her abdomen is nondistended, has normal active bowel sounds, soft, nontender, wi thout any palpable masses, hepatosplenomegaly, or hernias. Her extremities are without any cyanosis, clubbing, or edema and are nontender to palpation bilaterally. Pelvic examination is deferred. Results Result Diagrams: 05/06/24 16:02 05/06/24 14:19 Abnormal Lab Results - Last 24 Hours (Table) 05/06/24 Range/Units 21:06 POC Glucose (mg/dL) 112 H (70-110) mg/dL Assessment and Plan (1) Hypertensive urgency Current Visit: Yes Status: Acute Code(s): I16.0 - HYPERTENSIVE URGENCY SNOMED Code(s): 522471780 Plan: The patient is approximately 6 weeks out from delivery of her first child. The likelihood or chances of her presentation representing preeclampsia are extraordinarily low. I have recommended that she be admitted and managed as uncontrolled hypertension by internal medicine to be followed up as an outpatient with her primary care doctor. There is no indication at this time for obstetric or gynecologic intervention.
--- NOTE | 2024-05-07 17:50 | CA ---
Transthoracic Echo Report Name: Jessa Mcdermott Age: 23 Gender: F : 2000 Exam Date: 05/07/2024 11:14 Exam Location: [place] [facility] Ht (in): 62 Wt (lb): 212 Ordering Physician: Vishal Underwood MD Attending/Referring Phys: Chief Radiologic Technologist Polly Pierre RDCS Procedure CPT: Indications: Hypertension Cardiac Hx: Technical Quality: Good Contrast 1: Total Dose (mL): Contrast 2: Total Dose (mL): MEASUREMENTS (Male / Female) Normal Values 2D ECHO LV Diastolic Diameter PLAX 4.7 cm 4.2 - 5.9 / 3.9 - 5.3 cm LV Systolic Diameter PLAX 3.2 cm IVS Diastolic Thickness 1.2 cm 0.6 - 1.0 / 0.6 - 0.9 cm LVPW Diastolic Thickness 1.1 cm 0.6 - 1.0 / 0.6 - 0.9 cm LV Relative Wall Thickness 0.5 RV Internal Dim ED PLAX 3.2 cm LA Systolic Diameter LX 3.7 cm 3.0 - 4.0 / 2.7 - 3.8 cm LV Diastolic Volume MOD BP 95.5 cm??? 67 - 155 / 56 - 104 cm??? LV Systolic Volume MOD BP 42.3 cm??? 22 - 58 / 19 - 49 cm??? LV Ejection Fraction MOD BP 55.8 % >= 55 % LV Cardiac Index MOD BP 1470.4 cm???/min???m??? LV Diastolic Volume MOD 4C 84.9 cm??? LV Systolic Volume MOD 4C 36.0 cm??? LV Ejection Fraction MOD 4C 57.6 % LV Cardiac Index MOD 4C 1351.9 cm???/min???m??? LV Diastolic Length 4C 7.8 cm LV Systolic Length 4C 6.5 cm LV Diastolic Volume MOD 2C 108.0 cm??? LV Systolic Volume MOD 2C 46.5 cm??? LV Ejection Fraction MOD 2C 56.9 % LV Cardiac Index MOD 2C 1696.6 cm???/min???m??? LV Diastolic Length 2C 7.6 cm LV Systolic Length 2C 7.0 cm LA Volume 52.8 cm??? 18 - 58 / 22 - 52 cm??? LA Volume Index 25.1 cm???/m??? 16 - 28 cm???/m??? M-MODE Aortic Root Diameter MM 2.8 cm AV Cusp Separation MM 2.1 cm DOPPLER AV Peak Velocity 175.7 cm/s AV Peak Gradient 12.3 mmHg MV Area PHT 2.7 cm??? Mitral E Point Velocity 90.5 cm/s Mitral A Point Velocity 77.1 cm/s Mitral E to A Ratio 1.2 MV Deceleration Time 285.1 ms TR Peak Velocity 234.7 cm/s TR Peak Gradient 22.0 mmHg Right Ventricular Systolic Press 27.0 mmHg FINDINGS Left Ventricle Left ventricular ejection fraction is estimated at 55-60 %. Left ventricular cavity size normal. Mildly increased septal wall thickness. Mildly increased posterior wall thickness. Right Ventricle Normal right ventricular size and function. Right ventricular systolic pressure within normal limits. Right Atrium Normal right atrial size. No right atrial thrombus or mass seen. Left Atrium Normal left atrial size. No left atrial thrombus or mass present. Mitral Valve Structurally normal mitral valve. Trace mitral regurgitation. Aortic Valve Trileaflet aortic valve. No aortic valve stenosis or regurgitation. Tricuspid Valve Structurally normal tricuspid valve. Mild tricuspid regurgitation. Pulmonic Valve Structurally normal pulmonic valve. Trace to mild pulmonic regurgitation. Pericardium No pericardial or pleural effusion. Aorta Normal size aortic root and proximal ascending aorta. CONCLUSIONS Urine normal biventricular systolic function No significant valvular abnormalities noted No pericardial effusion Previewed by: Dr. Armin Caro MD (Electronically Signed) Final Date: 07 May 2024 17:49
[2024-05-07 18:07] VITALS: TEMP 97.6
[2024-05-07 23:58] VITALS: BP 144/95; PULSE 82; RESP 18
== END 2024-05-07 23:58 | disposition home or self-care (01) ==
LOC: EC 13:13 → 6NMEDSUR 22:05
PROVIDERS: ADMIT Internal Medicine; ATTEND Internal Medicine
DX: O16.5 Unspecified maternal hypertension, complicating the puerperium (principal); I16.0 Hypertensive urgency; O99.325 Drug use complicating the puerperium; F12.10 Cannabis abuse, uncomplicated; O99.345 Other mental disorders complicating the puerperium; F90.9 Attention-deficit hyperactivity disorder, unspecified type; O99.215 Obesity complicating the puerperium; Z79.899 Other long term (current) drug therapy
CPT/HCPCS: 82075; 96374; 99285; 36415; 93005; 93306; 80053; 83615; 83735; 84550; 84484; 85025; 81001; 80306; 70450; G0378 ×2; J1920

== ENCOUNTER → 2024-07-02 | Outpatient (CLI) | payer OTHER ==
--- NOTE | 2024-07-02 18:45 | CT ---
EXAMINATION TYPE: CT angio chest CT DLP: 527.1 mGycm, Automated exposure control for dose reduction was used. DATE OF EXAM: 07/02/2024 6:38 PM COMPARISON: None CLINICAL INDICATION:Female, 23 years old with history of R04.2 HEMOPTYSIS E78.41 ELEVATED D DIMER; ST AT H&C. Hemoptysis, elevated d-dimer. TECHNIQUE/CONTRAST: CTA scan of the thorax is performed with IV Contrast, patient injected with 100ml mL of Isovue 370, p ulmonary embolism protocol. MIP images are created and reviewed. FINDINGS: Pulmonary Artery: There is no evidence for a filling defect within the pulmonary vasculature to sugge st acute pulmonary embolism. The pulmonary artery is of normal size. Lungs/Pleura: No evidence of focal consolidation, pleural effusion or pneumothorax. No suspicious pul monary nodule or mass. Airway: Large airways are patent. Heart: Heart is within normal limits for size.. No pericardial effusion. Vasculature: No evidence of aortic aneurysm. Bovine aortic arch. Mediastinum: No evidence of adenopathy. Residual thymus demonstrated. Musculoskeletal: No acute osseous abnormalities Soft Tissues: Unremarkable. Lower neck: No significant findings. Upper Abdomen: No significant findings. IMPRESSION: No evidence of pulmonary embolism or acute thoracic process. [facility], , 07/02/2024 6:43 PM
== END | disposition home or self-care (01) ==
LOC: RADCTMAIN 17:57
PROVIDERS: ATTEND Family Medicine
DX: E78.41 Elevated Lipoprotein(a) (principal); R04.2 Hemoptysis; R79.89 Other specified abnormal findings of blood chemistry
CPT/HCPCS: 71275

== ENCOUNTER → 2024-08-06 | Outpatient (CLI) | payer OTHER ==
--- NOTE | 2024-08-06 10:05 | CT ---
EXAMINATION TYPE: CT abdomen pelvis w con DATE OF EXAM: 08/06/2024 10:00 AM COMPARISON: None CLINICAL INDICATION: Female, 23 years old with history of R19.7 DIARRHEA UNSPECIAIFIED; blood in stoo l TECHNIQUE: Axial CT abdomen pelvis w con;Sagittal and coronal reformats were created on a separate w orkstation. Contrast used:100ml mL of Isovue 300 with IV Contrast, (none if empty) Oral contrast used: with Oral Contrast (none if empty) CT DLP: 1581.7 mGycm, Automated exposure control for dose reduction was used. FINDINGS: LOWER CHEST: Unremarkable ABDOMEN LIVER: Unremarkable GALLBLADDER AND BILE DUCTS: Unremarkable. PANCREAS: Unremarkable. SPLEEN: Unremarkable. ADRENAL GLANDS: Unremarkable. KIDNEYS AND URETERS: No evidence of hydronephrosis or renal calculus. The ureters are unremarkable. PELVIS BLADDER: No evidence for wall thickening or mass given limitations of exam. REPRODUCTIVE: Unremarkable. ABDOMEN & PELVIS STOMACH AND BOWEL: No evidence of bowel obstruction. The appendix is visualized and normal. PERITONEUM/RETROPERITONEUM: No evidence of pneumoperitoneum or free fluid. VASCULATURE: No evidence of aortic aneurysm. MUSCULOSKELETAL: No acute osseous abnormalities LYMPH NODES: No gross evidence for lymphadenopathy. SOFT TISSUE/ABDOMINAL WALL: Unremarkable IMPRESSION: No evidence for gastrointestinal hemorrhage. No acute abdominal process visualized. [facility], , 08/06/2024 10:03 AM
== END | disposition home or self-care (01) ==
LOC: RADCTMAIN 07:20
PROVIDERS: ATTEND Emergency Medicine
DX: R19.7 Diarrhea, unspecified (principal); K92.1 Melena
CPT/HCPCS: 74177; Q9967